=== PATIENT | female | born 1935 | race Caucasian/White ===

== ENCOUNTER 2017-01-26 15:19 | Inpatient (IN) | payer OTHER ==
[2017-01-26 16:15] VITALS: BMI 27.4
--- NOTE | 2017-01-26 17:04 | PDOC ---
History of Present Illness - General Chief Complaint: Injury Stated Complaint: FALL Time Seen by Provider: 01/26/17 16:11 - History of Present Illness Initial Comments: 01/26/17 16:54 Patient is a 81 year old female who presents with headache and facial bruising following a fall. The patient is accompanied by her daughter who assists in providing the history. They report that the patient has had 3 falls within the last 24 hours. The patient fell twice yesterday both reportedly mechanical in nature. They report that today the patient was getting up from a chair when it fell out behind her and she fell forward onto her face while wearing her glasses. They report swelling and bruising around the patient's left eye prompting their visit to the ED. The daughter states that the patient is normally very ambulatory without many falls in the past and is concerned about her recent frequent falls in the last 24 hours. The patient denies fevers, chills, chest pain or palpitations, abdominal pain, or other injuries. Past History - Past Medical History Allergies/Adverse Reactions: Allergies Allergy/AdvReac Type Severity Reaction Status Date / Time No Known Allergies Allergy Verified 05/27/15 11:23 Home Medications: Ambulatory Orders Acetaminophen [Tylenol .Regular Strength -] 650 mg PO Q4H PRN #60 tablet Albuterol 0.083% Nebulizer [place] [Ventolin 0.083% Nebulizer Soln -] 1 neb NEB QIDR #100 vial 05/07/14 Pantoprazole Sodium [Protonix -] 20 mg PO DAILY #30 tablet.ec 05/07/14 Sertraline HCl [Zoloft -] 50 mg PO DAILY #30 tablet 05/07/14 Spironolactone [Aldactone -] 25 mg PO DAILY #30 tablet 05/07/14 Tiotropium [place] [Spiriva] 1 inh PO DAILY #1 inhaler 05/07/14 Ipratropium 0.02% Nebulizer [Atrovent] 1 neb [place] TID #30 vial 05/27/15 Prednisone [Deltasone -] 5 mg PO DAILY 05/27/15 Prednisone [Deltasone -] 40 mg PO DAILY #14 tablet 05/27/15 Valsartan 40 mg PO DAILY 05/27/15 COPD: Yes HTN: Yes Psychiatric Problems: Yes (depression.) - Surgical History Appendectomy: Yes Cholecystectomy: Yes - Psycho/Social/Smoking Cessation Hx Anxiety: No Suicidal Ideation: No Smoking History: Former smoker Have you smoked in the past 12 months: No Number of Cigarettes Smoked Daily: 20 If you are a former smoker, when did you quit?: 3 years ago Information on smoking cessation initiated: No 'Breaking Loose' booklet given: 04/24/14 Hx Alcohol Use: No Drug/Substance Use Hx: No Substance Use Type: None Hx Substance Use Treatment: No Review of Systems - Review of Systems Constitutional: No: Chills, Fever HEENTM: Yes: Eye Pain Respiratory: No: Cough, Shortness of Breath Cardiac (ROS): No: Chest Pain, Lightheadedness, Palpitations, Chest Tightness ABD/GI: No: Constipated, Diarrhea, Nausea, Vomiting : No: Dysuria Integumentary: Yes: Bruising. No: Rash Neurological: Yes: Headache. No: Numbness, Tingling, Weakness *Physical Exam - Vital Signs Last Vital Signs Temp Pulse Resp BP Pulse Ox 98.2 F 85 20 151/72 86 L 01/26/17 16:00 01/26/17 16:00 01/26/17 16:00 01/26/17 16:00 01/26/17 16:00 - Physical Exam Comments: 01/26/17 17:13 General Appearance: Nourished. No Apparent Distress HEENT: EOMI, Edema and bruising around the left eye with palpable hematoma above and below the eye and on the superior eyelid. Limited eye opening due to edema. No Pharyngeal Erythema, Tonsillar Exudate, Tonsillar Erythema Respiratory/Chest: Lungs Clear, Normal Breath Sounds. No Crackles, Rales, Rhonchi, Wheezing Cardiovascular: Regular Rhythm, Regular Rate, 3/6 Systolic ejection murmur auscultated on exam No Gallop/S3, Gallop/S4 Gastrointestinal/Abdominal: Normal Bowel Sounds, Soft. negative: Guarding, Rebound, Tenderness Extremity: Normal Capillary Refill Integumentary: Normal Color, Dry, Warm Neurologic: safety person II-XII NML intact, Fully Oriented, Alert, Normal Mood/Affect, Normal Response, Motor Strength 5/5, Normal Finger to Nose Medical Decision Making - Medical Decision Making 01/26/17 17:15 Patient is a 81 year old female who presents with headache, eye pain and edema following a fall. Differential includes but is not limited to: Subdural hematoma, Epidural hematoma, fracture, syncope, arrythmia. Given the patient's mechanism of fall and physical exam, we will obtain a CT head and CT facial to evaluate for bleeds and fractures. Given that the patient has had multiple falls within the last 24 hours, it is reasonable to evaluate for other etiology that could be contributing to her falls other than simply mechanical. We will send a cbc, cmp, troponin and obtain a EKG to evaluate. 01/26/17 19:20 Patient's head and facial CT were read as no acute fractures with no intracranial process or bleed. Given the patient's multiple falls in the last 24 hours despite having recently gotten out of rehab and given that the patient' s granddaughter is not entirely comfortable with caring for the patient, we believe that the patient requires admission for observation to be evaluated for PT and social work evaluation. 01/26/17 19:24 We discussed the case with Dr. Jefferson who agreed to accept the patient. *DC/Admit/Observation/Transfer Diagnosis at time of Disposition: Fall Qualifiers: Encounter type: initial encounter Qualified Code(s): W19.XXXA - Unspecified fall, initial encounter - Discharge Dispostion Condition at time of disposition: Guarded Admit: Yes - Attestations Physician Attestion: 01/26/17 19:18 I, Dr. Jose Xiong, attest that this document has been prepared under my direction and personally reviewed by me in its entirety. I further attest, that it accurately reflects all work, treatment, procedures and medical decision -making performed by me.
[2017-01-26] MEDS ORDERED: ACETAMINOPHEN 325 MG TABLET (FP) PO ONE (18:47)
[2017-01-26] MEDS ORDERED: ACETAMINOPHEN 325 MG TABLET (FP) ONE ×2 (19:14→23:04)
--- NOTE | 2017-01-26 19:30 | PDOC ---
Attending Attestation - Resident Resident Name: Jose Xiong - ED Attending Attestation I have performed the following: I have examined & evaluated the patient, The case was reviewed & discussed with the resident, I agree w/resident's findings & plan, Exceptions are as noted - HPI HPI: 01/26/17 19:27 81 yo F s/p trip and fall. pt has had multiple falls in last week, just out of rehab. . believes no loc but all unwitness. fell out of bed last pm landed forward on face, then today fell out of a chair. denies feeling unbalanced. no n /v c/o headache. since fall. no change to vision. no focal weakness. no change to speech. no f/c - Physicial Exam PE: 01/26/17 19:28 on exam awake alert left face eccymosis, forehead, periorbital, and cheek. no septal hematoma. EOMI, left eye with subjconj hemoatoma. perrl. no cervical spine tenderness. lungs clear . heart rrr. abd soft NT ext wwp. right upper arm wtih eccymosis from. 5/5 all four ext. - Medical Decision Making 01/26/17 19:29 81 yo F with mutliple falls, facial and head trauma. abbott ro syncope dysrhtymia, mi infection such as uti or pneumonia, ct head max facial. gideon consider admission due to frequency of falls, unsafe discharge.
[2017-01-26 20:04] LABS: BASOPHIL 1.2 % (0-2.0); EOSINOPHIL 1.1 % (0-4.5); MCH 25.3 pg (25.7-33.7); MCHC 31.7 g/dl (32.0-36.0); MEAN CELL VOLUME 79.8 fl (80-96); MEAN PLT VOLUME 8.2 fl (7.5-11.1); NEUTROPHILS 80.2 % (42.8-82.8); PLATELET COUNT 230 K/MM3 (134-434); RDW 15.4 % (11.6-15.6); WHITE BLOOD COUNT 8.3 K/mm3 (4.0-10.0)
[2017-01-26 20:07] LABS: ALBUMIN 3.4 g/dl (3.4-5.0); ALK PHOS 86 U/L (45-117); ANION GAP 7 (8-16); BILIRUBIN,TOTAL 0.5 mg/dL (0.2-1.0); CALCIUM 8.6 mg/dL (8.5-10.1); CO2 28 mmol/L (21-32); GLUCOSE,RANDOM 92 mg/dL (74-106); SGOT/AST 16 U/L (15-37); SGPT/ALT 19 U/L (12-78); TOT PROT 6.6 g/dl (6.4-8.2)
[2017-01-26 20:09] LABS: TROPONIN I 0.02 ng/ml (0.00-0.05)
[2017-01-26 20:12] LABS: URINE APPEARANCE CLEAR; URINE BILIRUBIN NEGATIVE (NEGATIVE); URINE BLOOD NEGATIVE (NEGATIVE); URINE COLOR YELLOW; URINE GLUCOSE (UA) NEGATIVE (NEGATIVE); URINE KETONE NEGATIVE (NEGATIVE); URINE LEUK ESTERASE NEGATIVE (NEGATIVE); URINE NITRITE NEGATIVE (NEGATIVE); URINE UROBILINOGEN NEGATIVE mg/dL (0.2-1.0)
[2017-01-26 20:15] LABS: URINE PROTEIN 1+ (NEGATIVE)
[2017-01-26 20:16] LABS: URINE RBC 5 /hpf (0-3); URINE WBC 1 /hpf (3-5)
[2017-01-26] MEDS ORDERED: ALBUTEROL SO4 2.5/IPRATROPIUM 0.5 INH SOL 3 ML VIAL.NEB. NEB PRN (21:28)
[2017-01-26] MEDS: HEPARIN NA (PORCINE) 5,000 UNITS/ML 1ML VIAL SQ SCH (22:52)
[2017-01-27 08:31] LABS: BASOPHIL 1.8 % (0-2.0); EOSINOPHIL 3.5 % (0-4.5); MCH 25.4 pg (25.7-33.7); MCHC 31.8 g/dl (32.0-36.0); MEAN CELL VOLUME 79.9 fl (80-96); MEAN PLT VOLUME 8.4 fl (7.5-11.1); NEUTROPHILS 72.2 % (42.8-82.8); PLATELET COUNT 216 K/MM3 (134-434); RDW 15.5 % (11.6-15.6); WHITE BLOOD COUNT 5.9 K/mm3 (4.0-10.0)
[2017-01-27 08:59] LABS: ALBUMIN 3.1 g/dl (3.4-5.0); ANION GAP 6 (8-16); CALCIUM 8.5 mg/dL (8.5-10.1); CO2 28 mmol/L (21-32); GLUCOSE,RANDOM 96 mg/dL (74-106)
[2017-01-27 09:01] LABS: TROPONIN I 0.03 ng/ml (0.00-0.05)
[2017-01-27 09:11] LABS: ALK PHOS 80 U/L (45-117); BILIRUBIN,TOTAL 0.6 mg/dL (0.2-1.0); CREATININE 1.1 mg/dL (0.55-1.02); SGOT/AST 16 U/L (15-37); SGPT/ALT 18 U/L (12-78); THYROID STIMULATING HORMONE 0.95 uIU/ml (0.358-3.74); TOT PROT 6.1 g/dl (6.4-8.2)
[2017-01-27] MEDS ORDERED: FUROSEMIDE 20 MG TABLET (FP) PO SCH (10:00)
--- NOTE | 2017-01-27 10:27 | EKG ---
Test Reason : Blood Pressure : / mmHG Vent. Rate : 082 BPM Atrial Rate : 082 BPM P-R Int : 146 ms QRS Dur : 084 ms QT Int : 404 ms P-R-T Axes : 047 -04 031 degrees QTc Int : 472 ms NORMAL SINUS RHYTHM POSSIBLE LEFT ATRIAL ENLARGEMENT CANNOT RULE OUT INFERIOR INFARCT , AGE UNDETERMINED POOR R WAVE PROGRESSION ABNORMAL ECG Confirmed by KENTON GAN MD ([id number]) on 01/27/2017 10:27:00 AM Referred By: Confirmed By:KENTON GAN MD
--- NOTE | 2017-01-27 10:36 | CON.CARD ---
Cardiology Consult (text) - Consultation Consultation Note: cc: s/p fall hpi: 81 f hx copd, , htn, hld, dchf, pvd, AAA here s/p fall. Recently discharged from rehab and at home has had several mechanical falls so brought to ER. No prodrome sxs. No cp, sob, palps, dizzy, loc, pnd, orthopnea. Each episode was due to a mechanical slip/fall per pt. Sees me for cardio. pmh: per hpi psh: appendectomy, cholecystectomy social: +cig hx fam: non contrib ros: per hpi; no fever, nvd, cough, moore, vision changes, gib, hematuria, dysuria meds: Home Medications Medication Instructions Recorded Pantoprazole Sodium [Protonix -] 20 mg PO DAILY #30 tablet.ec 05/07/14 Furosemide 20 mg PO DAILY 01/26/17 Aspirin [ASA -] 81 mg PO DAILY 01/27/17 Atorvastatin Calcium 10 mg PO HS 01/27/17 Fluticasone/Vilanterol [Breo 200 mcg NEB DAILY 01/27/17 Ellipta 200-25 Mcg INH] Levalbuterol HCl [Xopenex] 0.63 mg IH TID 01/27/17 Sertraline HCl [Zoloft] 100 mg PO DAILY 01/27/17 Spironolactone [Aldactone] 25 mg PO DAILY 01/27/17 Umeclidinium [place] [Incruse 62.5 mcg IH DAILY 01/27/17 Ellipta] pe: Vital Signs Period Temp Pulse Resp BP Sys/Le Pulse Ox Last 24 Hr 97.7 F-98.4 F 78-85 18-20 129-151/72-72 85-95 nad no jvd rrr s1 s2 no r/g, +as murmur cta bl, nl eff aaox3 no le e/c/c abd nt nd pos bs pos dp/pt no jaundice/diaphoresis no carotid bruits Laboratory Last Values WBC 5.9 K/mm3 (4.0-10.0) 01/27/17 06:00 RBC 3.03 M/mm3 (3.60-5.2) L 01/27/17 06:00 Hgb 7.7 GM/dL (10.7-15.3) L 01/27/17 06:00 Hct 24.2 % (32.4-45.2) L 01/27/17 06:00 MCV 79.9 fl (80-96) L 01/27/17 06:00 MCH 25.4 pg (25.7-33.7) L 01/27/17 06:00 MCHC 31.8 g/dl (32.0-36.0) L 01/27/17 06:00 RDW 15.5 % (11.6-15.6) 01/27/17 06:00 Plt Count 216 K/MM3 (134-434) 01/27/17 06:00 MPV 8.4 fl (7.5-11.1) 01/27/17 06:00 Neutrophils % 72.2 % (42.8-82.8) 01/27/17 06:00 Lymphocytes % 16.5 % (8-40) D 01/27/17 06:00 Monocytes % 6.0 % (3.8-10.2) 01/27/17 06:00 Eosinophils % 3.5 % (0-4.5) D 01/27/17 06:00 Basophils % 1.8 % (0-2.0) 01/27/17 06:00 Sodium 142 mmol/L (136-145) 01/27/17 06:00 Potassium 3.9 mmol/L (3.5-5.1) 01/27/17 06:00 Chloride 108 mmol/L (98-107) H 01/27/17 06:00 Carbon Dioxide 28 mmol/L (21-32) 01/27/17 06:00 Anion Gap 6 (8-16) L 01/27/17 06:00 BUN 20 mg/dL (7-18) H 01/27/17 06:00 Creatinine 1.1 mg/dL (0.55-1.02) H 01/27/17 06:00 Creat Clearance w eGFR 47.55 (>60) 01/27/17 06:00 Random Glucose 96 mg/dL (74-106) 01/27/17 06:00 Calcium 8.5 mg/dL (8.5-10.1) 01/27/17 06:00 Total Bilirubin 0.6 mg/dL (0.2-1.0) 01/27/17 06:00 AST 16 U/L (15-37) 01/27/17 06:00 ALT 18 U/L (12-78) 01/27/17 06:00 Alkaline Phosphatase 80 U/L (45-117) 01/27/17 06:00 Creatine Kinase 128 IU/L (26-192) 01/27/17 06:00 Troponin I 0.03 ng/ml (0.00-0.05) 01/27/17 06:00 Total Protein 6.1 g/dl (6.4-8.2) L 01/27/17 06:00 Albumin 3.1 g/dl (3.4-5.0) L 01/27/17 06:00 TSH 0.95 uIU/ml (0.358-3.74) 01/27/17 06:00 Urine Color Yellow 01/26/17 19:30 Urine Appearance Clear 01/26/17 19:30 Urine pH 7.0 (5.0-8.0) D 01/26/17 19:30 Ur Specific [place] 1.015 (1.005-1.025) 01/26/17 19:30 Urine Protein 1+ (NEGATIVE) H 01/26/17 19:30 Urine Glucose (UA) Negative (NEGATIVE) 01/26/17 19:30 Urine Ketones Negative (NEGATIVE) 01/26/17 19:30 Urine Blood Negative (NEGATIVE) 01/26/17 19:30 Urine Nitrite Negative (NEGATIVE) 01/26/17 19:30 Urine Bilirubin Negative (NEGATIVE) 01/26/17 19:30 Urine Urobilinogen Negative mg/dL (0.2-1.0) 01/26/17 19:30 Ur Leukocyte Esterase Negative (NEGATIVE) 01/26/17 19:30 Urine RBC 5 /hpf (0-3) 01/26/17 19:30 Urine WBC 1 /hpf (3-5) 01/26/17 19:30 Ur Epithelial Cells Rare /hpf (FEW) 01/26/17 19:30 echo 03/2014: nl lvef, mod conc lvh, nl rv s/f, mild tr, rvsp>60 echo 03/2016: nl lv/rv, mod conc lvh, mod , mild mac, insuff tr for rvsp mibi 03/2016: nl mpi, nl lvef ecg 01/26/17: sr, nl intervals, no ischemic changes cxr: small bl effs a/p: hpi: 81 f hx copd, , htn, hld, dchf, pvd, AAA here s/p fall falls: -no indication of cardiac etiology, description seems mechanical in nature -check orthostatic vitals -PT eval chronic diastolic chf: -stable, cont home aldactone/lasix htn: -stable, cont aldactone/lasix hld: -cont statin : -moderate on 03/2016 echo, repeat echo pending here AAA: -pt was supposed to have endorepair at [facility], [place] but she reports that procedure was unsuccessful -cont current cardiac meds, outpt vascular f/u copd, severe pulm htn: -suspect phtn sec to severe lung dz/copd -normal RV size/fcn -copd tx per pulm -repeat echo pending here
[2017-01-27] MEDS: PANTOPRAZOLE 20 MG TABLET (FP) PO SCH (11:01)
[2017-01-27] MEDS: HEPARIN NA (PORCINE) 5,000 UNITS/ML 1ML VIAL SQ SCH ×2 (11:01→21:59)
--- NOTE | 2017-01-27 11:25 | HP ---
Admitting History and Physical - Primary Care Physician PCP: Dion Sheehan - Admission Chief Complaint: I fell History of Present Illness: Ms Ordoñez is a very pleasant 81 year old female who comes in with 2 mechanical falls. She says the first fall she had was in bed. She says the sheets were too slippery and when she was getting up out of bed she slipped and fell. She did not have serious trauma secondary to this. However she was sitting in the chair with a pad underneath. She felt herself slipping down and went to get up. Instead of standing the chair tipped forward and she was unable to break her fall with her hands and she hit her face. She denies lightheadedness or dizziness associated with this. She denies passing out or loss of consciousness as well. She says the falls were mechanical and not related to presyncope or syncope. She has facial pain and bruising. She says she feels short of breath. She denies fevers, chills, chest pain, coughing, nausea, vomiting, abdominal pain, diarrhea, constipation, difficulty or pain on urination, or swelling. History Source: Patient Limitations to Obtaining History: No Limitations - Past Medical History Cardiovascular: Yes: HTN, Murmur Pulmonary: Yes: Bronchitis, COPD Gastrointestinal: Yes: Other (had colonoscopy ? 5 yrs ago). 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 [employer] History of Recent Travel: No Home Medications - Allergies Allergies/Adverse Reactions: Allergies Allergy/AdvReac Type Severity Reaction Status Date / Time No Known Allergies Allergy Verified 05/27/15 11:23 - Home Medications Home Medications: Ambulatory Orders Pantoprazole Sodium [Protonix -] 20 mg PO DAILY #30 tablet.ec 05/07/14 Furosemide 20 mg PO DAILY 01/26/17 Aspirin [ASA -] 81 mg PO DAILY 01/27/17 Atorvastatin Calcium 10 mg PO HS 01/27/17 Fluticasone/Vilanterol [Breo Ellipta 200-25 Mcg INH] 200 mcg NEB DAILY 01/27/17 Levalbuterol HCl [Xopenex] 0.63 mg IH TID 01/27/17 Sertraline HCl [Zoloft] 100 mg PO DAILY 01/27/17 Spironolactone [Aldactone] 25 mg PO DAILY 01/27/17 Umeclidinium [place] [Incruse Ellipta] 62.5 mcg IH DAILY 01/27/17 Family Disease History - Family Disease History Family Disease History: Other: Father (cirrhosis), Mother (96 old age) Review of Systems Findings/Remarks: full review of systems obtained, as per HPI and otherwise negative Physical Examination Vital Signs: Vital Signs Temperature 98.4 F 01/27/17 06:34 Pulse Rate 78 01/27/17 09:21 Respiratory Rate 18 01/27/17 06:34 Blood Pressure 135/72 01/27/17 06:34 O2 Sat by Pulse Oximetry (%) 85 L 01/27/17 09:21 Constitutional: Yes: Well Nourished, No Distress, Calm Eyes: Yes: Other (bruising around L eye) HENT: Yes: Other (bruising of face) Cardiovascular: Yes: Regular Rate and Rhythm, Murmur. No: Gallop, Rub Respiratory: Yes: Regular, CTA Bilaterally, On Nasal O2. No: Rales, Rhonchi, Wheezes Gastrointestinal: Yes: Normal Bowel Sounds, Soft. No: Distention, Tenderness Extremities: Yes: WNL Edema: No Labs: CBC, BMP 01/27/17 06:00 01/27/17 06:00 Imaging - Results Chest X-ray: Report Reviewed, Image Reviewed Ultrasound: Report Reviewed Problem List - Problems (1) COPD exacerbation Assessment/Plan: -patient presents with fall but is short of breath and requiring more oxygen -admit to hospital -consult pulmonary -continue home regimen, has not received medication this am but will be profiled and given -will hold on steroids until evaluated by pulmonary Code(s): J44.1 - CHRONIC OBSTRUCTIVE PULMONARY DISEASE W (ACUTE) EXACERBATION (2) Acute and chronic respiratory failure Assessment/Plan: -secondary to copd exacerbation -requiring increase in oxygen -as above Code(s): J96.20 - ACUTE AND CHR RESP FAILURE, UNSP W HYPOXIA OR HYPERCAPNIA (3) Fall Assessment/Plan: -sounds mechanical in nature -ECHO read reviewed -carotid ultrasound reviewed -cardiology and neurology consulted for possible syncopal aspect -check orthostatic vital signs -PT consult Code(s): W19.XXXA - UNSPECIFIED FALL, INITIAL ENCOUNTER Qualifiers: Encounter type: initial encounter Qualified Code(s): W19.XXXA - Unspecified fall, initial encounter (4) Carotid artery stenosis Assessment/Plan: -s/p carotid ultrasound showing FAM -consult vascular surgery for evaluation -check lipid panel to evaluate cholesterol level -continue statin currently, may need increase Code(s): I65.29 - OCCLUSION AND STENOSIS OF UNSPECIFIED CAROTID ARTERY Qualifiers: Laterality: bilateral Qualified Code(s): I65.23 - Occlusion and stenosis of bilateral carotid arteries (5) CHF (congestive heart failure) Assessment/Plan: -does not appear in exacerbation -continue lasix -cardiology consulted Code(s): I50.9 - HEART FAILURE, UNSPECIFIED (6) Aortic stenosis Assessment/Plan: -cause of murmur -seen on ECHO -cardiology to evaluate, if falls appear to be syncopal in nature ? possible TAVR Code(s): I35.0 - NONRHEUMATIC AORTIC (VALVE) STENOSIS (7) AAA (abdominal aortic aneurysm) without rupture Assessment/Plan: -s/p recent attempted repair Code(s): I71.4 - ABDOMINAL AORTIC ANEURYSM, WITHOUT RUPTURE (8) Anemia Assessment/Plan: -patient says she required transfusion with attempt to fix AAA recently -suspect acute blood loss -continue to monitor, may need transfusion Code(s): D64.9 - ANEMIA, UNSPECIFIED
[2017-01-27] MEDS ORDERED: PATIENT'S OWN MEDICATION (NON-FORMULARY) (Fluticasone/Vilanterol [Breo Ellipta 200-25 Mcg NEB SCH (11:30)
[2017-01-27] MEDS ORDERED: PATIENT'S OWN MEDICATION (NON-FORMULARY) (Umeclidinium Bromide [Incruse Ellipta] 62.5 MCG) IH SCH (11:30)
[2017-01-27] MEDS: SPIRONOLACTONE 25 MG TABLET (FP) PO SCH (12:14)
[2017-01-27] MEDS: ASPIRIN 81 MG CHEWABLE TABLETS PO SCH (12:14)
[2017-01-27] MEDS: FUROSEMIDE 20 MG TABLET (FP) PO SCH (14:43)
[2017-01-27] MEDS: PATIENT'S OWN MEDICATION (NON-FORMULARY) (Fluticasone/Vilanterol [Breo Ellipta 200-25 Mcg IH SCH ×2 (14:43→14:44)
[2017-01-27 15:07] LABS: TROPONIN I 0.02 ng/ml (0.00-0.05)
--- NOTE | 2017-01-27 17:26 | PN ---
Progress Note (short form) - Note Progress Note: PULMONARY CONSULTATION DICTATED 01/27/17 IMP ACUTE ON CHRONIC HYPOXEMIC FAILURE COPD SEVERE PULMONARY HTN SEVERE AORTIC STENOSIS SEVERE OSAS CAROTID STENOSIS CHF S/P MECHANICAL FALL AAA S/P ATTEMPTED REPAIR ANEMIA PLAN O2 INHALED BRONCHODILATORS MONITOR H+H TRANSFUSE PRN DR KLINE Problem List - Problems (1) AAA (abdominal aortic aneurysm) without rupture Code(s): I71.4 - ABDOMINAL AORTIC ANEURYSM, WITHOUT RUPTURE (2) Acute and chronic respiratory failure Code(s): J96.20 - ACUTE AND CHR RESP FAILURE, UNSP W HYPOXIA OR HYPERCAPNIA (3) Anemia Code(s): D64.9 - ANEMIA, UNSPECIFIED (4) Carotid artery stenosis Code(s): I65.29 - OCCLUSION AND STENOSIS OF UNSPECIFIED CAROTID ARTERY Qualifiers: Laterality: bilateral Qualified Code(s): I65.23 - Occlusion and stenosis of bilateral carotid arteries (5) Fall Code(s): W19.XXXA - UNSPECIFIED FALL, INITIAL ENCOUNTER Qualifiers: Encounter type: initial encounter Qualified Code(s): W19.XXXA - Unspecified fall, initial encounter (6) Aortic stenosis Code(s): I35.0 - NONRHEUMATIC AORTIC (VALVE) STENOSIS (7) CHF (congestive heart failure) Code(s): I50.9 - HEART FAILURE, UNSPECIFIED (8) COPD exacerbation Code(s): J44.1 - CHRONIC OBSTRUCTIVE PULMONARY DISEASE W (ACUTE) EXACERBATION (9) Hypoxia Code(s): R09.02 - HYPOXEMIA (10) PVD (peripheral vascular disease) Code(s): I73.9 - PERIPHERAL VASCULAR DISEASE, UNSPECIFIED (11) Pulmonary hypertension Code(s): I27.2 - OTHER SECONDARY PULMONARY HYPERTENSION (12) Sleep apnea in adult Code(s): G47.30 - SLEEP APNEA, UNSPECIFIED
[2017-01-27] MEDS: ACETAMINOPHEN 325 MG TABLET (FP) PO PRN (18:32)
--- NOTE | 2017-01-27 19:16 | CONSULT ---
Consult - text type - Consultation Consultation Note: NEUROLOGY CONSULTATION is greatly appreciated: This 81 yo RH woman lives with her granddaughter and her family. PMH sig for HTN, COPD, GERD, Pulm HTN, and AAA. Quit smoking 3 yrs ago. O2 dependent at home. Maintained on valsartan, albuterol, pantoprazole, sertraline, spironolactone and prednisone. Hospitalized 2 years ago for edema. Was sent to the [facility] for reab and sent home with a walker at that time. Deteriorated over the last year describing herself as "long term." 2 falls in last few days. First she slid out of bed without consequence. However , yesterday she tried to get out of a reclining chair which demarcus up behind her propelling her to the ground with frontal facial trauma. CT of head (reviewed): Facial soft tissue swelling. Mild atrophy and microvascular changes. Carotid duplex: 60-79% R ICA stenosis. LOUIE: Left facial ecchymosis. Right carotid bruit. IV/ SOPHIA @ [facility] NEURO: MS/speech: Normal CN II-XII: normal without nystagmus Motor: No drift. Normal strength. Minimal cogwheeling on the R. Sl. reduced Monika. Absent AJ's. Toes downgoing. Coord: No FTN dystaxia Sensory: Minimally reduced vibration over feet. Romberg - Gait: Sl flexed. Sl shuffling. IMP: Mild B/L motor signs with mild-mod senile gait dysfunction. No sign of acute CVA or toxic-metabolic insult. Unfortunate accidental fall with facial trauma but no sequellae. SUGGEST: Home safety check. Shower chair. Toilet rails. Check B12, TSH. Follow and/or work-up anemia (H/H=02/17). PT for gait with walker. Neuro f/u as out patient. Thank you very much, Mark Sanchez MD
[2017-01-27] MEDS: ATORVASTATIN CA 10 MG TABLET (FP) PO SCH (21:59)
[2017-01-27 22:41] LABS: TROPONIN I 0.03 ng/ml (0.00-0.05)
--- NOTE | 2017-01-28 07:17 | CONS ---
DATE OF CONSULTATION: 01/27/2017 REFERRING PHYSICIAN: Kevin Mclaughlin MD HISTORY OF PRESENT ILLNESS: The patient is an 81-year-old white female with advanced COPD, on home O2, had aortic stenosis, hypertension, hyperlipidemia, AAA unable to be repaired, diastolic heart failure, hyperlipidemia, severe obstructive sleep apnea, admitted to [facility] secondary to a mechanical fall. Patient apparently was recently discharged from rehabilitation. At home, she had apparently several mechanical falls. Apparently, she fell on the night of admission on her face at which time she presented to the emergency room. She denied any loss of consciousness. Denied any chest pains or palpitations. She denied any fevers or chills. She was admitted with the above. The patient does have a history of COPD and apparently has been on supplemental O2 for the past couple of months. She has a history of tobacco use. There is no history of occupational exposure to chemical or fumes. Of note, she underwent an echocardiogram which revealed severe pulmonary hypertension with a right ventricular systolic pressure greater than 60. She was also noted to have severe aortic valve thickening, severe valvular aortic stenosis. Patient denied any syncope. PAST MEDICAL HISTORY: Again includes COPD, aortic stenosis, severe pulmonary hypertension, obstructive sleep apnea, hyperlipidemia, diastolic heart failure. REVIEW OF SYSTEMS: No chest pain, no palpitations. Positive dyspnea on exertion. No headaches, no visual disturbances. CURRENT MEDICATIONS: Include: 1. Breo Ellipta, increased Ellipta. 2. Tylenol. 3. Heparin b.i.d. 4. Zoloft. 5. Duo-Neb. 6. Lipitor. 7. Lasix. 8. Aldactone. 9. Aspirin. 10. Protonix. PHYSICAL EXAMINATION: General: The patient is an elderly white female, well developed, awake, alert, in no acute distress. Vital Signs: She is afebrile. Blood pressure is 120/86. Respiratory rate is 18. O2 saturation 92% on 2 L. HEENT: Normocephalic. There are ecchymotic areas. Marked ecchymosis around the left eye and face, more prominent on the left side. Neck: Supple, without adenopathy. Heart: Regular, with S1, S2. Chest: Clear. Abdomen: Soft. Bowel sounds positive. Extremities: No cyanosis or edema. LABORATORIES: WBC is 5.9, hemoglobin 7.7, hematocrit 24.2, and a platelet count of 216,000. INR is 0.94. BUN 20, creatinine 1.1. Chest x-ray: No infiltrates, no effusions, small bilateral effusions, mild bibasilar atelectatic changes. IMPRESSION: 1. Status post mechanical fall with facial trauma. 2. Severe pulmonary hypertension. 3. Chronic obstructive pulmonary disease. 4. Severe obstructive sleep apnea. Patient responded well on continuous positive airway pressure of 6 cm. 5. Diastolic heart failure. 6. Severe aortic stenosis. 7. Anemia. PLAN: Inhaled bronchodilator. Supplemental O2. CPAP at 6 cm of pressure when patient's facial trauma heals. Monitor hemoglobin and hematocrit. Consider transfusion. Obtain followup chest x-rays. Incentive spirometer. ZARI KLINE M.D. [id number]
[2017-01-28 08:03] LABS: BASOPHIL 2.2 % (0-2.0); EOSINOPHIL 4.2 % (0-4.5); MCH 25.4 pg (25.7-33.7); MCHC 31.7 g/dl (32.0-36.0); MEAN PLT VOLUME 8.2 fl (7.5-11.1); NEUTROPHILS 71.3 % (42.8-82.8); PLATELET COUNT 212 K/MM3 (134-434); RDW 15.4 % (11.6-15.6); WHITE BLOOD COUNT 6.9 K/mm3 (4.0-10.0)
[2017-01-28 08:20] LABS: CHOLESTEROL 114 mg/dL (50-200); LDL CHOLESTEROL (ONLY SJRH) 38 mg/dL (5-100)
[2017-01-28 08:21] LABS: ANION GAP 9 (8-16); CALCIUM 8.6 mg/dL (8.5-10.1); CO2 28 mmol/L (21-32); GLUCOSE,RANDOM 102 mg/dL (74-106); MAGNESIUM 2.2 mg/dL (1.8-2.4); PHOSPHOROUS 3.3 mg/dL (2.5-4.9)
[2017-01-28] MEDS: PATIENT'S OWN MEDICATION (NON-FORMULARY) (Fluticasone/Vilanterol [Breo Ellipta 200-25 Mcg IH SCH (09:53)
[2017-01-28] MEDS: PATIENT'S OWN MEDICATION (NON-FORMULARY) (Umeclidinium Bromide [Incruse Ellipta] 1 PUFF) IH SCH (09:53)
[2017-01-28] MEDS: SPIRONOLACTONE 25 MG TABLET (FP) PO SCH (09:59)
[2017-01-28] MEDS: PANTOPRAZOLE 20 MG TABLET (FP) PO SCH (09:59)
[2017-01-28] MEDS: SERTRALINE HCL 50 MG TABLET (FP) PO SCH (09:59)
[2017-01-28] MEDS: ACETAMINOPHEN 325 MG TABLET (FP) PO PRN ×2 (09:59→17:54)
[2017-01-28] MEDS: ASPIRIN 81 MG CHEWABLE TABLETS PO SCH (09:59)
[2017-01-28] MEDS: HEPARIN NA (PORCINE) 5,000 UNITS/ML 1ML VIAL SQ SCH ×2 (10:00→21:07)
--- NOTE | 2017-01-28 10:48 | PN ---
Progress Note, Physician History of Present Illness: Still feeling weak, short of breath (could not tolerate Duoneb due to tachycardia). Notes that the aenmia seem sot be a new finding, although having received blood transfusion after her acute - Current Medication List Current Medications: Active Medications Acetaminophen (Tylenol -) 650 mg PO Q6H PRN PRN Reason: FEVER OR PAIN Last Admin: 01/28/17 09:59 Dose: 650 mg Aspirin (Asa -) 81 mg PO DAILY [facility] Last Admin: 01/28/17 09:59 Dose: 81 mg Atorvastatin Calcium (Lipitor -) 10 mg PO HS [facility] Last Admin: 01/27/17 21:59 Dose: 10 mg Furosemide (Lasix -) 20 mg PO DAILY@1400 [facility] Last Admin: 01/27/17 14:43 Dose: 20 mg Furosemide (Lasix Injection -) 20 mg IVPUSH ONCE ONE Stop: 01/28/17 11:01 Heparin Sodium (Porcine) (Heparin -) 5,000 unit SQ BID [facility] Last Admin: 01/28/17 10:00 Dose: 5,000 unit Non-Formulary Medication (Fluticasone/Vilanterol [Breo Ellipta 200-25 Mcg Inh]) 1 puff IH DAILY [facility] Last Admin: 01/28/17 09:53 Dose: 1 puff Non-Formulary Medication (Umeclidinium [place] [Incruse Ellipta]) 1 puff IH DAILY [facility] Last Admin: 01/28/17 09:53 Dose: 1 puff Non-Formulary Medication (Xopenex) 1 dose NEB TID [facility] Pantoprazole Sodium (Protonix -) 20 mg PO DAILY [facility] Last Admin: 01/28/17 09:59 Dose: 20 mg Sertraline HCl (Zoloft -) 100 mg PO DAILY [facility] Last Admin: 01/28/17 09:59 Dose: 100 mg Spironolactone (Aldactone -) 25 mg PO DAILY [facility] Last Admin: 01/28/17 09:59 Dose: 25 mg - Objective Vital Signs: Vital Signs Temperature 98.6 F 01/28/17 06:00 Pulse Rate 94 H 01/28/17 06:00 Respiratory Rate 20 01/28/17 06:00 Blood Pressure 151/94 01/28/17 06:00 O2 Sat by Pulse Oximetry (%) 90 L 01/27/17 21:00 Constitutional: Yes: No Distress, Calm HENT: Yes: Other (left facial ecchymosis, left orbital swelling) Neck: Yes: Supple Cardiovascular: Yes: Regular Rate and Rhythm, S1, S2. No: Murmur Respiratory: Yes: Regular, Diminished (slightly bilaterally). No: Rales, Rhonchi, Wheezes Gastrointestinal: Yes: Normal Bowel Sounds, Soft, Distention, Tenderness Edema: No Neurological: Yes: Alert, Oriented Labs: CBC, BMP 01/28/17 07:40 01/28/17 07:40 Assessment/Plan Current Active Problems AAA (abdominal aortic aneurysm) without rupture (Acute) Acute and chronic respiratory failure (Acute) Anemia (Acute) Carotid artery stenosis (Acute) Fall (Acute) Pulmonary hypertension (Acute) Sleep apnea in adult (Acute) -given anemia is relatively new (likely subacute, but last CBC was from 1-2 years ago here, with hgb 11-12) will treat for symptomatic anemia (falls , weakness, shortness of breath) with blood transfusion. No abd pain now, but will check CT abd to ensure no "leak" form the known aortic aneurysm she has -heme consult, check stool guaiac to see if GI needs to be consulted
[2017-01-28] MEDS ORDERED: FUROSEMIDE 40 MG/4 ML INJECTABLE VIAL IVPUSH ONE ×2 (11:00→16:00)
[2017-01-28 11:18] LABS: LDH 161 U/L (84-246)
--- NOTE | 2017-01-28 13:00 | CONSULT ---
Consult - text type - Consultation Consultation Note: Hematology consult note - Admission Chief Complaint: I fell Ms. freed comes in after an episode of fall and extensive bruises. She reports she has been gradually getting tired over the past few months. No h/o of blood loss anywhere. She eats reasonably well. No h/o of infections. No prior h/o of anemia in the past. - Past Medical History Cardiovascular: Yes: HTN, Murmur Pulmonary: Yes: Bronchitis, COPD Gastrointestinal: Yes: Other (had colonoscopy ? 5 yrs ago). 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 [employer] History of Recent Travel: No Home Medications - Allergies Allergies/Adverse Reactions: Allergies Allergy/AdvReac Type Severity Reaction Status Date / Time No Known Allergies Allergy Verified 05/27/15 11:23 - Home Medications Home Medications: Ambulatory Orders Pantoprazole Sodium [Protonix -] 20 mg PO DAILY #30 tablet.ec 05/07/14 Furosemide 20 mg PO DAILY 01/26/17 Aspirin [ASA -] 81 mg PO DAILY 01/27/17 Atorvastatin Calcium 10 mg PO HS 01/27/17 Fluticasone/Vilanterol [Breo Ellipta 200-25 Mcg INH] 200 mcg NEB DAILY 01/27/17 Levalbuterol HCl [Xopenex] 0.63 mg IH TID 01/27/17 Sertraline HCl [Zoloft] 100 mg PO DAILY 01/27/17 Spironolactone [Aldactone] 25 mg PO DAILY 01/27/17 Umeclidinium [place] [Incruse Ellipta] 62.5 mcg IH DAILY 01/27/17 Family Disease History - Family Disease History Family Disease History: Other: Father (cirrhosis), Mother (96 old age) Review of Systems Findings/Remarks: full review of systems obtained, as per HPI and otherwise negative Physical Examination Vital Signs: Vital Signs Period Temp Pulse Resp BP Sys/Le Pulse Ox Last 24 Hr 98.3 F-98.6 F 8- 18-22 111-151/52-94 90-90 Constitutional: Yes: Well Nourished, No Distress, Calm Eyes: Yes: HENT: Yes: extensive bruising of the L. side of the face Cardiovascular: Yes: Regular Rate and Rhythm, Murmur. No: Gallop, Rub Respiratory: Yes: Regular, CTA Bilaterally, On Nasal O2. No: Rales, Rhonchi, Wheezes Gastrointestinal: Yes: Normal Bowel Sounds, Soft. No: Distention, Tenderness Extremities: Yes: WNL Edema: No Labs: CBC, BMP 01/28/17 07:40 01/28/17 07:40 Active Medications Generic Name Dose Route Start Last Admin Trade Name Freq PRN Reason Stop Dose Admin Acetaminophen 650 mg 01/27/17 09:37 01/28/17 09:59 Tylenol - PO 650 mg Q6H PRN Administration FEVER OR PAIN Aspirin 81 mg 01/27/17 11:30 01/28/17 09:59 Asa - PO 81 mg DAILY [facility] Administration Atorvastatin Calcium 10 mg 01/27/17 22:00 01/27/17 21:59 Lipitor - PO 10 mg HS [facility] Administration Furosemide 20 mg 01/27/17 14:00 01/27/17 14:43 Lasix - PO 20 mg DAILY@1400 [facility] Administration Furosemide 20 mg 01/28/17 16:00 Lasix Injection - IVPUSH 01/28/17 16:01 ONCE ONE Heparin Sodium (Porcine) 5,000 unit 01/26/17 22:00 01/28/17 10:00 Heparin - SQ 5,000 unit BID [facility] Administration Non-Formulary Medication 1 puff 01/27/17 12:08 01/28/17 09:53 Fluticasone/Vilanterol [Breo Ellipta 200-25 Mcg Inh] IH 1 puff DAILY [facility] Administration Non-Formulary Medication 1 puff 01/27/17 12:08 01/28/17 09:53 Umeclidinium [place] [Incruse Ellipta] IH 1 puff DAILY [facility] Administration Non-Formulary Medication 1 dose 01/28/17 14:00 Xopenex NEB TID [facility] Pantoprazole Sodium 20 mg 01/27/17 10:00 01/28/17 09:59 Protonix - PO 20 mg DAILY [facility] Administration Sertraline HCl 100 mg 01/28/17 10:00 01/28/17 09:59 Zoloft - PO 100 mg DAILY [facility] Administration Spironolactone 25 mg 01/27/17 11:45 01/28/17 09:59 Aldactone - PO 25 mg DAILY [facility] Administration Imaging - Results Chest X-ray: Report Reviewed, Image Reviewed Ultrasound: Report Reviewed Problem List - Problems (1) COPD exacerbation Code(s): J44.1 - CHRONIC OBSTRUCTIVE PULMONARY DISEASE W (ACUTE) EXACERBATION (2) Acute and chronic respiratory failure Code(s): J96.20 - ACUTE AND CHR RESP FAILURE, UNSP W HYPOXIA OR HYPERCAPNIA (3) Fall Code(s): W19.XXXA - UNSPECIFIED FALL, INITIAL ENCOUNTER Qualifiers: Encounter type: initial encounter Qualified Code(s): W19.XXXA - Unspecified fall, initial encounter (4) Carotid artery stenosis Code(s): I65.29 - OCCLUSION AND STENOSIS OF UNSPECIFIED CAROTID ARTERY Qualifiers: Laterality: bilateral Qualified Code(s): I65.23 - Occlusion and stenosis of bilateral carotid arteries (5) CHF (congestive heart failure) Code(s): I50.9 - HEART FAILURE, UNSPECIFIED (6) Aortic stenosis Code(s): I35.0 - NONRHEUMATIC AORTIC (VALVE) STENOSIS (7) AAA (abdominal aortic aneurysm) without rupture Code(s): I71.4 - ABDOMINAL AORTIC ANEURYSM, WITHOUT RUPTURE (8) Anemia Assessment/Plan: -unclear cause of (near) normocytic, normochromic anemia -there is a reticulocytosis -other cell lines are not affected -Iron studies are pending -B12 and foalte are normal inc. LDH -All this currently points to an acute loss anemia vs iron deficiency and even if so mild Code(s): D64.9 - ANEMIA, UNSPECIFIED
--- NOTE | 2017-01-28 13:37 | PN ---
Progress Note, Physician History of Present Illness: pulmonary alert,feeling better,less dyspneic - Current Medication List Current Medications: Active Medications Acetaminophen (Tylenol -) 650 mg PO Q6H PRN PRN Reason: FEVER OR PAIN Last Admin: 01/28/17 09:59 Dose: 650 mg Aspirin (Asa -) 81 mg PO DAILY [facility] Last Admin: 01/28/17 09:59 Dose: 81 mg Atorvastatin Calcium (Lipitor -) 10 mg PO HS [facility] Last Admin: 01/27/17 21:59 Dose: 10 mg Furosemide (Lasix -) 20 mg PO DAILY@1400 [facility] Last Admin: 01/27/17 14:43 Dose: 20 mg Furosemide (Lasix Injection -) 20 mg IVPUSH ONCE ONE Stop: 01/28/17 16:01 Heparin Sodium (Porcine) (Heparin -) 5,000 unit SQ BID [facility] Last Admin: 01/28/17 10:00 Dose: 5,000 unit Non-Formulary Medication (Fluticasone/Vilanterol [Breo Ellipta 200-25 Mcg Inh]) 1 puff IH DAILY [facility] Last Admin: 01/28/17 09:53 Dose: 1 puff Non-Formulary Medication (Umeclidinium [place] [Incruse Ellipta]) 1 puff IH DAILY [facility] Last Admin: 01/28/17 09:53 Dose: 1 puff Non-Formulary Medication (Xopenex) 1 dose NEB TID [facility] Pantoprazole Sodium (Protonix -) 20 mg PO DAILY [facility] Last Admin: 01/28/17 09:59 Dose: 20 mg Sertraline HCl (Zoloft -) 100 mg PO DAILY [facility] Last Admin: 01/28/17 09:59 Dose: 100 mg Spironolactone (Aldactone -) 25 mg PO DAILY [facility] Last Admin: 01/28/17 09:59 Dose: 25 mg - Objective Vital Signs: Vital Signs Temperature 98.5 F 01/28/17 10:00 Pulse Rate 85 01/28/17 10:00 Respiratory Rate 22 01/28/17 10:00 Blood Pressure 111/52 01/28/17 10:00 O2 Sat by Pulse Oximetry (%) 90 L 01/28/17 09:00 Constitutional: Yes: Calm, Thin Eyes: Yes: WNL HENT: Yes: WNL Neck: Yes: WNL Cardiovascular: Yes: Regular Rate and Rhythm, S1, S2 Respiratory: Yes: CTA Bilaterally, Rales (b basilar rales) Gastrointestinal: Yes: Normal Bowel Sounds, Soft Extremities: Yes: WNL Edema: Yes Edema: LLE: Trace, RLE: Trace Labs: CBC, BMP 01/28/17 07:40 01/28/17 07:40 Problem List - Problems (1) AAA (abdominal aortic aneurysm) without rupture Code(s): I71.4 - ABDOMINAL AORTIC ANEURYSM, WITHOUT RUPTURE (2) Acute and chronic respiratory failure Code(s): J96.20 - ACUTE AND CHR RESP FAILURE, UNSP W HYPOXIA OR HYPERCAPNIA (3) Anemia Code(s): D64.9 - ANEMIA, UNSPECIFIED (4) Carotid artery stenosis Code(s): I65.29 - OCCLUSION AND STENOSIS OF UNSPECIFIED CAROTID ARTERY Qualifiers: Laterality: bilateral Qualified Code(s): I65.23 - Occlusion and stenosis of bilateral carotid arteries (5) Fall Code(s): W19.XXXA - UNSPECIFIED FALL, INITIAL ENCOUNTER Qualifiers: Encounter type: initial encounter Qualified Code(s): W19.XXXA - Unspecified fall, initial encounter (6) Aortic stenosis Code(s): I35.0 - NONRHEUMATIC AORTIC (VALVE) STENOSIS (7) CHF (congestive heart failure) Code(s): I50.9 - HEART FAILURE, UNSPECIFIED (8) COPD exacerbation Code(s): J44.1 - CHRONIC OBSTRUCTIVE PULMONARY DISEASE W (ACUTE) EXACERBATION (9) Hypoxia Code(s): R09.02 - HYPOXEMIA (10) PVD (peripheral vascular disease) Code(s): I73.9 - PERIPHERAL VASCULAR DISEASE, UNSPECIFIED (11) Pulmonary hypertension Code(s): I27.2 - OTHER SECONDARY PULMONARY HYPERTENSION (12) Sleep apnea in adult Code(s): G47.30 - SLEEP APNEA, UNSPECIFIED Assessment/Plan IMP ACUTE ON CHRONIC HYPOXEMIC FAILURE COPD SEVERE PULMONARY HTN SEVERE AORTIC STENOSIS SEVERE OSAS CAROTID STENOSIS CHF S/P MECHANICAL FALL AAA S/P ATTEMPTED REPAIR ANEMIA PLAN O2 INHALED BRONCHODILATORS MONITOR H+H TRANSFUSE DR KLINE Problem List - Problems (1) AAA (abdominal aortic aneurysm) without rupture Code(s): I71.4 - ABDOMINAL AORTIC ANEURYSM, WITHOUT RUPTURE (2) Acute and chronic respiratory failure Code(s): J96.20 - ACUTE AND CHR RESP FAILURE, UNSP W HYPOXIA OR HYPERCAPNIA (3) Anemia Code(s): D64.9 - ANEMIA, UNSPECIFIED (4) Carotid artery stenosis Code(s): I65.29 - OCCLUSION AND STENOSIS OF UNSPECIFIED CAROTID ARTERY Qualifiers: Laterality: bilateral Qualified Code(s): I65.23 - Occlusion and stenosis of bilateral carotid arteries (5) Fall Code(s): W19.XXXA - UNSPECIFIED FALL, INITIAL ENCOUNTER Qualifiers: Encounter type: initial encounter Qualified Code(s): W19.XXXA - Unspecified fall, initial encounter (6) Aortic stenosis Code(s): I35.0 - NONRHEUMATIC AORTIC (VALVE) STENOSIS (7) CHF (congestive heart failure) Code(s): I50.9 - HEART FAILURE, UNSPECIFIED (8) COPD exacerbation Code(s): J44.1 - CHRONIC OBSTRUCTIVE PULMONARY DISEASE W (ACUTE) EXACERBATION (9) Hypoxia Code(s): R09.02 - HYPOXEMIA (10) PVD (peripheral vascular disease) Code(s): I73.9 - PERIPHERAL VASCULAR DISEASE, UNSPECIFIED (11) Pulmonary hypertension Code(s): I27.2 - OTHER SECONDARY PULMONARY HYPERTENSION (12) Sleep apnea in adult Code(s): G47.30 - SLEEP APNEA, UNSPECIFIED
[2017-01-28] MEDS ORDERED: XOPENEX 0.63 MG/3 ML NEB SCH ×2 (14:00→22:00)
[2017-01-28] MEDS: XOPENEX 0.63 MG/3 ML NEB SCH ×2 (16:00→21:11)
[2017-01-28] MEDS ORDERED: XOPENEX 0.63 MG/3 ML NR SCH (16:15)
[2017-01-28] MEDS ORDERED: FUROSEMIDE 40 MG/4 ML INJECTABLE VIAL ONE (18:18)
[2017-01-28] MEDS: ATORVASTATIN CA 10 MG TABLET (FP) PO SCH (21:07)
[2017-01-29] MEDS: XOPENEX 0.63 MG/3 ML NEB SCH ×3 (05:59→22:06)
[2017-01-29 06:41] LABS: SERUM IRON 21 ug/dL (27-139); TOTAL IRON BINDING CAPACITY 323 ug/dL (250-450); UIBC 302 ug/dL (118-369)
[2017-01-29 07:29] LABS: EOSINOPHIL 3.6 % (0-4.5); MCHC 33.5 g/dl (32.0-36.0); MEAN CELL VOLUME 80.4 fl (80-96); MEAN PLT VOLUME 8.1 fl (7.5-11.1); NEUTROPHILS 72.7 % (42.8-82.8); PLATELET COUNT 253 K/MM3 (134-434); RDW 15.7 % (11.6-15.6); WHITE BLOOD COUNT 8.2 K/mm3 (4.0-10.0)
[2017-01-29 08:04] LABS: ALBUMIN 3.4 g/dl (3.4-5.0); ALK PHOS 85 U/L (45-117); ANION GAP 6 (8-16); BILIRUBIN,TOTAL 1.3 mg/dL (0.2-1.0); CALCIUM 8.7 mg/dL (8.5-10.1); CO2 30 mmol/L (21-32); CREATININE 1.1 mg/dL (0.55-1.02); GLUCOSE,RANDOM 95 mg/dL (74-106); SGOT/AST 16 U/L (15-37); SGPT/ALT 18 U/L (12-78); TOT PROT 6.7 g/dl (6.4-8.2)
[2017-01-29] MEDS: ACETAMINOPHEN 325 MG TABLET (FP) PO PRN (08:34)
[2017-01-29] MEDS ORDERED: PT OWN MED DRAWER 7, Y5N ONE (09:13)
[2017-01-29] MEDS: ASPIRIN 81 MG CHEWABLE TABLETS PO SCH (09:19)
[2017-01-29] MEDS: SPIRONOLACTONE 25 MG TABLET (FP) PO SCH (09:19)
[2017-01-29] MEDS: SERTRALINE HCL 50 MG TABLET (FP) PO SCH (09:20)
[2017-01-29] MEDS: HEPARIN NA (PORCINE) 5,000 UNITS/ML 1ML VIAL SQ SCH ×2 (09:21→21:10)
[2017-01-29] MEDS: PATIENT'S OWN MEDICATION (NON-FORMULARY) (Fluticasone/Vilanterol [Breo Ellipta 200-25 Mcg IH SCH (09:29)
[2017-01-29] MEDS: PATIENT'S OWN MEDICATION (NON-FORMULARY) (Umeclidinium Bromide [Incruse Ellipta] 1 PUFF) IH SCH (09:30)
[2017-01-29] MEDS: PANTOPRAZOLE 20 MG TABLET (FP) PO SCH (09:45)
--- NOTE | 2017-01-29 10:19 | PN ---
Progress Note, Physician History of Present Illness: Patient feels about the same this morning, still tired. Tolerated the blood transfusion OK yesterday. CT showed no sign of bleed from AAA and no bowel movement yesterday. Iron studies coming back with low iron. - Current Medication List Current Medications: Active Medications Acetaminophen (Tylenol -) 650 mg PO Q6H PRN PRN Reason: FEVER OR PAIN Last Admin: 01/29/17 08:34 Dose: 650 mg Aspirin (Asa -) 81 mg PO DAILY [facility] Last Admin: 01/29/17 09:19 Dose: 81 mg Atorvastatin Calcium (Lipitor -) 10 mg PO HS [facility] Last Admin: 01/28/17 21:07 Dose: 10 mg Furosemide (Lasix -) 20 mg PO DAILY@1400 [facility] Last Admin: 01/27/17 14:43 Dose: 20 mg Heparin Sodium (Porcine) (Heparin -) 5,000 unit SQ BID [facility] Last Admin: 01/29/17 09:21 Dose: 5,000 unit Non-Formulary Medication (Fluticasone/Vilanterol [Breo Ellipta 200-25 Mcg Inh]) 1 puff IH DAILY [facility] Last Admin: 01/29/17 09:29 Dose: 1 puff Non-Formulary Medication (Umeclidinium [place] [Incruse Ellipta]) 1 puff IH DAILY [facility] Last Admin: 01/29/17 09:30 Dose: 1 puff (Xopenex 0.63mg/3ml) 1 dose NEB TIDR [facility] Pantoprazole Sodium (Protonix -) 20 mg PO DAILY [facility] Last Admin: 01/29/17 09:45 Dose: 20 mg Sertraline HCl (Zoloft -) 100 mg PO DAILY [facility] Last Admin: 01/29/17 09:20 Dose: 100 mg Spironolactone (Aldactone -) 25 mg PO DAILY [facility] Last Admin: 01/29/17 09:19 Dose: 25 mg - Objective Vital Signs: Vital Signs Temperature 98.8 F 01/29/17 07:02 Pulse Rate 89 01/29/17 08:10 Respiratory Rate 20 01/29/17 07:02 Blood Pressure 118/64 01/29/17 08:10 O2 Sat by Pulse Oximetry (%) 100 01/28/17 21:00 Constitutional: Yes: No Distress, Calm HENT: Yes: Other (ecchymosis left face with left orbital swelling) Neck: Yes: Supple, Trachea Midline Cardiovascular: Yes: Regular Rate and Rhythm, S1, S2. No: Murmur Respiratory: Yes: Regular, Diminished (mild, bilaterally) Gastrointestinal: Yes: Normal Bowel Sounds, Soft. No: Distention, Tenderness Edema: No Neurological: Yes: Alert, Oriented Labs: CBC, BMP 01/29/17 06:10 01/29/17 06:10 Assessment/Plan Current Active Problems AAA (abdominal aortic aneurysm) without rupture (Acute) Acute and chronic respiratory failure (Acute) Anemia (Acute) Carotid artery stenosis (Acute) Fall (Acute) Pulmonary hypertension (Acute) Sleep apnea in adult (Acute) -still awaiting stool guaiac (but likely no active bleeding) -iron studies reflective of deficiency -will start PO iron -cont COPD treatment
[2017-01-29] MEDS: FERROUS SO4 325 MG TABLET (FP) PO SCH (10:49)
[2017-01-29] MEDS: ASCORBIC ACID 500 MG TABLET (FP) PO SCH (10:50)
--- NOTE | 2017-01-29 11:52 | PN ---
Progress Note (short form) - Note Progress Note: Progress Note: Patient seen and examined No complaints Vital Signs Period Temp Pulse Resp BP Sys/Le Pulse Ox Last 24 Hr 97.8 F-98.8 F 80-96 20-22 115-157/52-85 97-100 Constitutional: Yes: Well Nourished, No Distress, Calm Eyes: Yes: HENT: Yes: extensive bruising of the L. side of the face Cardiovascular: Yes: Regular Rate and Rhythm, Murmur. No: Gallop, Rub Respiratory: Yes: Regular, CTA Bilaterally, On Nasal O2. No: Rales, Rhonchi, Wheezes Gastrointestinal: Yes: Normal Bowel Sounds, Soft. No: Distention, Tenderness Extremities: Yes: WNL Edema: No CBC, BMP 01/29/17 06:10 01/29/17 06:10 Labs: reviewed A/P - Problems (1) COPD exacerbation Code(s): J44.1 - CHRONIC OBSTRUCTIVE PULMONARY DISEASE W (ACUTE) EXACERBATION (2) Acute and chronic respiratory failure Code(s): J96.20 - ACUTE AND CHR RESP FAILURE, UNSP W HYPOXIA OR HYPERCAPNIA (3) Fall Code(s): W19.XXXA - UNSPECIFIED FALL, INITIAL ENCOUNTER Qualifiers: Encounter type: initial encounter Qualified Code(s): W19.XXXA - Unspecified fall, initial encounter (4) Carotid artery stenosis Code(s): I65.29 - OCCLUSION AND STENOSIS OF UNSPECIFIED CAROTID ARTERY Qualifiers: Laterality: bilateral Qualified Code(s): I65.23 - Occlusion and stenosis of bilateral carotid arteries (5) CHF (congestive heart failure) Code(s): I50.9 - HEART FAILURE, UNSPECIFIED (6) Aortic stenosis Code(s): I35.0 - NONRHEUMATIC AORTIC (VALVE) STENOSIS (7) AAA (abdominal aortic aneurysm) without rupture Code(s): I71.4 - ABDOMINAL AORTIC ANEURYSM, WITHOUT RUPTURE (8) Anemia Assessment/Plan: -low iron and iron saturation is consistent with iron deficiency anemia along with acute blood loss anemia contributing to the current anemia -her Hb has significantly improved with the blood transfusion -I agree with the Fe So4 and can gradualyl increase it to tid -I will also check a ferritin now even though doubt its accuracy -She says she ahd a colonoscopy in the apst 10 years and was ok -I agree with stool guiaic and if +ve a GI eval or else we can await response to iron and recovery from the acute blood loss
--- NOTE | 2017-01-29 12:00 | PN ---
Progress Note, Physician Chief Complaint: pulmonary alert,no distress,mild dyspnea with exertion - Current Medication List Current Medications: Active Medications Acetaminophen (Tylenol -) 650 mg PO Q6H PRN PRN Reason: FEVER OR PAIN Last Admin: 01/29/17 08:34 Dose: 650 mg Ascorbic Acid (Vitamin C -) 500 mg PO DAILY [facility] Last Admin: 01/29/17 10:50 Dose: 500 mg Aspirin (Asa -) 81 mg PO DAILY [facility] Last Admin: 01/29/17 09:19 Dose: 81 mg Atorvastatin Calcium (Lipitor -) 10 mg PO HS [facility] Last Admin: 01/28/17 21:07 Dose: 10 mg Ferrous Sulfate (Feosol -) 325 mg PO DAILY [facility] Last Admin: 01/29/17 10:49 Dose: 325 mg Furosemide (Lasix -) 20 mg PO DAILY@1400 [facility] Last Admin: 01/27/17 14:43 Dose: 20 mg Heparin Sodium (Porcine) (Heparin -) 5,000 unit SQ BID [facility] Last Admin: 01/29/17 09:21 Dose: 5,000 unit Non-Formulary Medication (Fluticasone/Vilanterol [Breo Ellipta 200-25 Mcg Inh]) 1 puff IH DAILY [facility] Last Admin: 01/29/17 09:29 Dose: 1 puff Non-Formulary Medication (Umeclidinium [place] [Incruse Ellipta]) 1 puff IH DAILY [facility] Last Admin: 01/29/17 09:30 Dose: 1 puff (Xopenex 0.63mg/3ml) 1 dose NEB TIDR [facility] Pantoprazole Sodium (Protonix -) 20 mg PO DAILY [facility] Last Admin: 01/29/17 09:45 Dose: 20 mg Sertraline HCl (Zoloft -) 100 mg PO DAILY [facility] Last Admin: 01/29/17 09:20 Dose: 100 mg Spironolactone (Aldactone -) 25 mg PO DAILY [facility] Last Admin: 01/29/17 09:19 Dose: 25 mg - Objective Vital Signs: Vital Signs Temperature 98.8 F 01/29/17 07:02 Pulse Rate 89 01/29/17 08:10 Respiratory Rate 20 01/29/17 07:02 Blood Pressure 118/64 01/29/17 08:10 O2 Sat by Pulse Oximetry (%) 97 01/29/17 09:00 Constitutional: Yes: Calm, Thin Eyes: Yes: WNL HENT: Yes: Other Cardiovascular: Yes: Regular Rate and Rhythm, S1, S2 Respiratory: Yes: Rales (bibasilar crackles) Gastrointestinal: Yes: Normal Bowel Sounds, Soft Extremities: Yes: WNL Edema: No Labs: CBC, BMP 01/29/17 06:10 01/29/17 06:10 Problem List - Problems (1) AAA (abdominal aortic aneurysm) without rupture Code(s): I71.4 - ABDOMINAL AORTIC ANEURYSM, WITHOUT RUPTURE (2) Acute and chronic respiratory failure Code(s): J96.20 - ACUTE AND CHR RESP FAILURE, UNSP W HYPOXIA OR HYPERCAPNIA (3) Anemia Code(s): D64.9 - ANEMIA, UNSPECIFIED (4) Carotid artery stenosis Code(s): I65.29 - OCCLUSION AND STENOSIS OF UNSPECIFIED CAROTID ARTERY Qualifiers: Laterality: bilateral Qualified Code(s): I65.23 - Occlusion and stenosis of bilateral carotid arteries (5) Fall Code(s): W19.XXXA - UNSPECIFIED FALL, INITIAL ENCOUNTER Qualifiers: Encounter type: initial encounter Qualified Code(s): W19.XXXA - Unspecified fall, initial encounter (6) Aortic stenosis Code(s): I35.0 - NONRHEUMATIC AORTIC (VALVE) STENOSIS (7) CHF (congestive heart failure) Code(s): I50.9 - HEART FAILURE, UNSPECIFIED (8) COPD exacerbation Code(s): J44.1 - CHRONIC OBSTRUCTIVE PULMONARY DISEASE W (ACUTE) EXACERBATION (9) Hypoxia Code(s): R09.02 - HYPOXEMIA (10) PVD (peripheral vascular disease) Code(s): I73.9 - PERIPHERAL VASCULAR DISEASE, UNSPECIFIED (11) Pulmonary hypertension Code(s): I27.2 - OTHER SECONDARY PULMONARY HYPERTENSION (12) Sleep apnea in adult Code(s): G47.30 - SLEEP APNEA, UNSPECIFIED Assessment/Plan IMP ACUTE ON CHRONIC HYPOXEMIC FAILURE COPD SEVERE PULMONARY HTN SEVERE AORTIC STENOSIS SEVERE OSAS CAROTID STENOSIS CHF S/P MECHANICAL FALL AAA S/P ATTEMPTED REPAIR ANEMIA PLAN O2 INHALED BRONCHODILATORS MONITOR H+H TRANSFUSE DR KLINE Problem List - Problems (1) AAA (abdominal aortic aneurysm) without rupture Code(s): I71.4 - ABDOMINAL AORTIC ANEURYSM, WITHOUT RUPTURE (2) Acute and chronic respiratory failure Code(s): J96.20 - ACUTE AND CHR RESP FAILURE, UNSP W HYPOXIA OR HYPERCAPNIA (3) Anemia Code(s): D64.9 - ANEMIA, UNSPECIFIED (4) Carotid artery stenosis Code(s): I65.29 - OCCLUSION AND STENOSIS OF UNSPECIFIED CAROTID ARTERY Qualifiers: Laterality: bilateral Qualified Code(s): I65.23 - Occlusion and stenosis of bilateral carotid arteries (5) Fall Code(s): W19.XXXA - UNSPECIFIED FALL, INITIAL ENCOUNTER Qualifiers: Encounter type: initial encounter Qualified Code(s): W19.XXXA - Unspecified fall, initial encounter (6) Aortic stenosis Code(s): I35.0 - NONRHEUMATIC AORTIC (VALVE) STENOSIS (7) CHF (congestive heart failure) Code(s): I50.9 - HEART FAILURE, UNSPECIFIED (8) COPD exacerbation Code(s): J44.1 - CHRONIC OBSTRUCTIVE PULMONARY DISEASE W (ACUTE) EXACERBATION (9) Hypoxia Code(s): R09.02 - HYPOXEMIA (10) PVD (peripheral vascular disease) Code(s): I73.9 - PERIPHERAL VASCULAR DISEASE, UNSPECIFIED (11) Pulmonary hypertension Code(s): I27.2 - OTHER SECONDARY PULMONARY HYPERTENSION (12) Sleep apnea in adult Code(s): G47.30 - SLEEP APNEA, UNSPECIFIED
[2017-01-29] MEDS: FUROSEMIDE 20 MG TABLET (FP) PO SCH (13:24)
[2017-01-29] MEDS: ATORVASTATIN CA 10 MG TABLET (FP) PO SCH (21:09)
[2017-01-30] MEDS: ACETAMINOPHEN 325 MG TABLET (FP) PO PRN ×2 (02:28→17:41)
[2017-01-30] MEDS: XOPENEX 0.63 MG/3 ML NEB SCH ×3 (06:30→21:32)
[2017-01-30 08:39] LABS: BASOPHIL 2.3 % (0-2.0); EOSINOPHIL 4.6 % (0-4.5); MCH 26.5 pg (25.7-33.7); MCHC 32.8 g/dl (32.0-36.0); MEAN CELL VOLUME 80.7 fl (80-96); NEUTROPHILS 71.6 % (42.8-82.8); PLATELET COUNT 248 K/MM3 (134-434); RDW 15.8 % (11.6-15.6); WHITE BLOOD COUNT 7.9 K/mm3 (4.0-10.0)
[2017-01-30 09:03] LABS: ANION GAP 7 (8-16); CALCIUM 8.9 mg/dL (8.5-10.1); CO2 30 mmol/L (21-32); GLUCOSE,RANDOM 97 mg/dL (74-106)
[2017-01-30] MEDS: ASPIRIN 81 MG CHEWABLE TABLETS PO SCH (09:38)
[2017-01-30] MEDS: SPIRONOLACTONE 25 MG TABLET (FP) PO SCH (09:38)
[2017-01-30] MEDS: FERROUS SO4 325 MG TABLET (FP) PO SCH (09:38)
[2017-01-30] MEDS: ASCORBIC ACID 500 MG TABLET (FP) PO SCH (09:39)
[2017-01-30] MEDS: PATIENT'S OWN MEDICATION (NON-FORMULARY) (Fluticasone/Vilanterol [Breo Ellipta 200-25 Mcg IH SCH (09:39)
[2017-01-30] MEDS: PANTOPRAZOLE 20 MG TABLET (FP) PO SCH (09:39)
[2017-01-30] MEDS: PATIENT'S OWN MEDICATION (NON-FORMULARY) (Umeclidinium Bromide [Incruse Ellipta] 1 PUFF) IH SCH (09:39)
[2017-01-30] MEDS: HEPARIN NA (PORCINE) 5,000 UNITS/ML 1ML VIAL SQ SCH ×2 (09:39→21:28)
[2017-01-30] MEDS: SERTRALINE HCL 50 MG TABLET (FP) PO SCH (09:39)
--- NOTE | 2017-01-30 09:52 | PN ---
Progress Note (short form) - Note Progress Note: Patient admitted with mechanical falls causing severe ecchymosis over left eye and forehead was noted to have sever anemia requiring 2 units packed cells ? related to her falls. Hx COPD, AAA with too high risk at [facility] for surgical Rx, Hypertension, PVD, carotid artery stenosis and CHF. patient now afraid to walk on her own. PT to begin today. On Exam: Vital Signs Temp 98.2 F 01/30/17 09:05 Pulse 81 01/30/17 09:05 Resp 18 01/30/17 09:05 BP 129/51 01/30/17 09:05 Pulse Ox 98 01/29/17 21:00 Intake & Output 01/29/17 01/29/17 01/30/17 11:59 23:59 11:59 Intake Total 240 300 275 Balance 240 300 275 Intake: Oral 240 300 275 Other: Voiding Method Toilet Toilet Toilet # Unmeasured Voids Void 1 1 1 Bowel Movement No No Yes Alert resolving ecchymotic area left side of face and forehead Carotids; No obvious bruit Chest:Decreased breath sounds Cor: 2/6M Ext; No Edema Abnormal Lab Results 01/29/17 01/30/17 01/30/17 06:10 07:05 07:05 RDW 15.8 H Eosinophils % 4.6 H Basophils % 2.3 H Anion Gap 7 L BUN 20 H Iron 266 H IMP: Mechanical falls Severe Iron def anemia ? cause COPD Hx: CHF AAA now 6.9CM Hypertension Plan: F/U lab Stool Guiac PT
--- NOTE | 2017-01-30 12:54 | CONSULT ---
Consult Consult Specialty:: Vascular Surgery Reason for Consultation:: Enlarging AAA - History of Present Illness History of Present Illness: 81 year old woman with known AAA. She was evaluated last year for 5.6 cm AAA with short neck and an attempt to repair with fenestrated endograft was done at [facility].This was unsuccessful due to small iliac arteries which would no accept the endograft catheter (24 fr). Bilateral femoral endarterectomies were performed. There has been no follow-up since September. Jes is now admitted after several falls and facial trauma. She denies any dizziness or loss of consciousness. She has no abdominal or back pain. - History Source History Provided By: Patient, Medical Record - Past Medical History Cardio/Vascular: Yes: Aortic Stenosis, HTN, Murmur Pulmonary: Yes: Bronchitis, COPD Gastrointestinal: Yes: Other (had colonoscopy ? 5 yrs ago). 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 [employer] History of Recent Travel: No Home Medications - Allergies Allergies/Adverse Reactions: Allergies Allergy/AdvReac Type Severity Reaction Status Date / Time albuterol AdvReac Tachycardia Verified 01/27/17 18:34 - Home Medications Home Medications: Ambulatory Orders Pantoprazole Sodium [Protonix -] 20 mg PO DAILY #30 tablet.ec 05/07/14 Furosemide 20 mg PO DAILY 01/26/17 Aspirin [ASA -] 81 mg PO DAILY 01/27/17 Atorvastatin Calcium 10 mg PO HS 01/27/17 Fluticasone/Vilanterol [Breo Ellipta 200-25 Mcg INH] 1 puff IH DAILY 01/27/17 Levalbuterol HCl [Xopenex] 0.63 mg NEB TID 01/27/17 Sertraline HCl [Zoloft] 100 mg PO DAILY 01/27/17 Spironolactone [Aldactone] 25 mg PO DAILY 01/27/17 Umeclidinium [place] [Incruse Ellipta] 1 puff IH DAILY 01/27/17 Family Disease History - Family Disease History Family Disease History: Other: Father (cirrhosis), Mother (96 old age) Physical Exam Vital Signs: Vital Signs Temperature 98.2 F 01/30/17 09:05 Pulse Rate 79 01/30/17 10:32 Respiratory Rate 18 01/30/17 09:05 Blood Pressure 129/51 01/30/17 09:05 O2 Sat by Pulse Oximetry (%) 97 01/30/17 10:32 Constitutional: Yes: No Distress Eyes: Yes: EOM Intact, Other (Periorbital ecchymosis left eye) Neck: Yes: Supple Cardiovascular: Yes: Regular Rate and Rhythm Respiratory: Yes: Regular Gastrointestinal: Yes: Soft (No tenderness or mass palpable) Edema: No Peripheral Pulses WNL: Yes (2+ femoral bilateral) Labs: CBC, BMP 01/30/17 07:05 01/30/17 07:05 Imaging - Results Cat Scan: Image Reviewed (Non contrast study with no leak, AAA 6.5 cm maximum diameter) Problem List - Problems (1) AAA (abdominal aortic aneurysm) without rupture Assessment/Plan: Enlarging juxtarenal AAA - 8 mm increase in 10 months. Open repair would be high risk due to pulmonary and cardiac risk factors. Another attempt at endovascular repair with renal stenting (snorkel procedure) would allow less invasive procedure with a smaller diameter graft system. I have discussed with patient and will speak with surgeon at [facility]. Code(s): I71.4 - ABDOMINAL AORTIC ANEURYSM, WITHOUT RUPTURE (2) Anemia Assessment/Plan: Work-up in progress. Code(s): D64.9 - ANEMIA, UNSPECIFIED Qualifiers: Anemia type: iron deficiency Iron deficiency anemia type: chronic blood loss Qualified Code(s): D50.0 - Iron deficiency anemia secondary to blood loss (chronic)
--- NOTE | 2017-01-30 13:26 | PN ---
Progress Note, Physician History of Present Illness: pulmonary alert,nad,-sob,-cp . ct abdomen +AAA 6.5cm - Current Medication List Current Medications: Active Medications Acetaminophen (Tylenol -) 650 mg PO Q6H PRN PRN Reason: FEVER OR PAIN Last Admin: 01/30/17 02:28 Dose: 650 mg Ascorbic Acid (Vitamin C -) 500 mg PO DAILY [facility] Last Admin: 01/30/17 09:39 Dose: 500 mg Aspirin (Asa -) 81 mg PO DAILY [facility] Last Admin: 01/30/17 09:38 Dose: 81 mg Atorvastatin Calcium (Lipitor -) 10 mg PO HS [facility] Last Admin: 01/29/17 21:09 Dose: 10 mg Ferrous Sulfate (Feosol -) 325 mg PO DAILY [facility] Last Admin: 01/30/17 09:38 Dose: 325 mg Furosemide (Lasix -) 20 mg PO DAILY@1400 [facility] Last Admin: 01/29/17 13:24 Dose: Not Given Heparin Sodium (Porcine) (Heparin -) 5,000 unit SQ BID [facility] Last Admin: 01/30/17 09:39 Dose: 5,000 unit Non-Formulary Medication (Fluticasone/Vilanterol [Breo Ellipta 200-25 Mcg Inh]) 1 puff IH DAILY [facility] Last Admin: 01/30/17 09:39 Dose: 1 puff Non-Formulary Medication (Umeclidinium [place] [Incruse Ellipta]) 1 puff IH DAILY [facility] Last Admin: 01/30/17 09:39 Dose: 1 puff (Xopenex 0.63mg/3ml) 1 dose NEB TIDR [facility] Last Admin: 01/30/17 06:30 Dose: 1 dose Pantoprazole Sodium (Protonix -) 20 mg PO DAILY [facility] Last Admin: 01/30/17 09:39 Dose: 20 mg Sertraline HCl (Zoloft -) 100 mg PO DAILY [facility] Last Admin: 01/30/17 09:39 Dose: 100 mg Spironolactone (Aldactone -) 25 mg PO DAILY [facility] Last Admin: 01/30/17 09:38 Dose: 25 mg - Objective Vital Signs: Vital Signs Temperature 98.2 F 01/30/17 09:05 Pulse Rate 79 01/30/17 10:32 Respiratory Rate 18 01/30/17 09:05 Blood Pressure 129/51 01/30/17 09:05 O2 Sat by Pulse Oximetry (%) 97 01/30/17 10:32 Constitutional: Yes: Calm, Thin Eyes: Yes: WNL HENT: Yes: WNL Neck: Yes: WNL Cardiovascular: Yes: Regular Rate and Rhythm, S1, S2 Respiratory: Yes: Diminished Gastrointestinal: Yes: Normal Bowel Sounds, Soft Extremities: Yes: WNL Edema: No Labs: CBC, BMP 01/30/17 07:05 01/30/17 07:05 Problem List - Problems (1) AAA (abdominal aortic aneurysm) without rupture Code(s): I71.4 - ABDOMINAL AORTIC ANEURYSM, WITHOUT RUPTURE (2) Acute and chronic respiratory failure Code(s): J96.20 - ACUTE AND CHR RESP FAILURE, UNSP W HYPOXIA OR HYPERCAPNIA (3) Anemia Code(s): D64.9 - ANEMIA, UNSPECIFIED Qualifiers: Anemia type: iron deficiency Iron deficiency anemia type: chronic blood loss Qualified Code(s): D50.0 - Iron deficiency anemia secondary to blood loss (chronic) (4) Carotid artery stenosis Code(s): I65.29 - OCCLUSION AND STENOSIS OF UNSPECIFIED CAROTID ARTERY Qualifiers: Laterality: bilateral Qualified Code(s): I65.23 - Occlusion and stenosis of bilateral carotid arteries (5) Fall Code(s): W19.XXXA - UNSPECIFIED FALL, INITIAL ENCOUNTER Qualifiers: Encounter type: initial encounter Qualified Code(s): W19.XXXA - Unspecified fall, initial encounter (6) Aortic stenosis Code(s): I35.0 - NONRHEUMATIC AORTIC (VALVE) STENOSIS (7) CHF (congestive heart failure) Code(s): I50.9 - HEART FAILURE, UNSPECIFIED (8) COPD exacerbation Code(s): J44.1 - CHRONIC OBSTRUCTIVE PULMONARY DISEASE W (ACUTE) EXACERBATION (9) Hypoxia Code(s): R09.02 - HYPOXEMIA (10) PVD (peripheral vascular disease) Code(s): I73.9 - PERIPHERAL VASCULAR DISEASE, UNSPECIFIED (11) Pulmonary hypertension Code(s): I27.2 - OTHER SECONDARY PULMONARY HYPERTENSION (12) Sleep apnea in adult Code(s): G47.30 - SLEEP APNEA, UNSPECIFIED Assessment/Plan IMP ACUTE ON CHRONIC HYPOXEMIC FAILURE STABLE COPD STABLE SEVERE PULMONARY HTN SEVERE AORTIC STENOSIS SEVERE OSAS CAROTID STENOSIS CHF S/P MECHANICAL FALL AAA S/P ATTEMPTED REPAIR,increasing in size now 6.5CM ANEMIA PLAN O2 INHALED BRONCHODILATORS MONITOR H+H TRANSFUSE AAA REPAIR PER VASCULAR SURGERY DR KLINE Problem List - Problems (1) AAA (abdominal aortic aneurysm) without rupture Code(s): I71.4 - ABDOMINAL AORTIC ANEURYSM, WITHOUT RUPTURE (2) Acute and chronic respiratory failure Code(s): J96.20 - ACUTE AND CHR RESP FAILURE, UNSP W HYPOXIA OR HYPERCAPNIA (3) Anemia Code(s): D64.9 - ANEMIA, UNSPECIFIED (4) Carotid artery stenosis Code(s): I65.29 - OCCLUSION AND STENOSIS OF UNSPECIFIED CAROTID ARTERY Qualifiers: Laterality: bilateral Qualified Code(s): I65.23 - Occlusion and stenosis of bilateral carotid arteries (5) Fall Code(s): W19.XXXA - UNSPECIFIED FALL, INITIAL ENCOUNTER Qualifiers: Encounter type: initial encounter Qualified Code(s): W19.XXXA - Unspecified fall, initial encounter (6) Aortic stenosis Code(s): I35.0 - NONRHEUMATIC AORTIC (VALVE) STENOSIS (7) CHF (congestive heart failure) Code(s): I50.9 - HEART FAILURE, UNSPECIFIED (8) COPD exacerbation Code(s): J44.1 - CHRONIC OBSTRUCTIVE PULMONARY DISEASE W (ACUTE) EXACERBATION (9) Hypoxia Code(s): R09.02 - HYPOXEMIA (10) PVD (peripheral vascular disease) Code(s): I73.9 - PERIPHERAL VASCULAR DISEASE, UNSPECIFIED (11) Pulmonary hypertension Code(s): I27.2 - OTHER SECONDARY PULMONARY HYPERTENSION (12) Sleep apnea in adult Code(s): G47.30 - SLEEP APNEA, UNSPECIFIED
[2017-01-30] MEDS: FUROSEMIDE 20 MG TABLET (FP) PO SCH (13:35)
--- NOTE | 2017-01-30 18:15 | PN ---
Progress Note (short form) - Note Progress Note: cc: s/p fall S: patient denies cp, palps, dizziness, sob. Current Medications Acetaminophen (Tylenol -) 650 mg PO Q6H PRN PRN Reason: FEVER OR PAIN Last Admin: 01/30/17 17:41 Dose: 650 mg Ascorbic Acid (Vitamin C -) 500 mg PO DAILY [facility] Last Admin: 01/30/17 09:39 Dose: 500 mg Aspirin (Asa -) 81 mg PO DAILY [facility] Last Admin: 01/30/17 09:38 Dose: 81 mg Atorvastatin Calcium (Lipitor -) 10 mg PO HS [facility] Last Admin: 01/29/17 21:09 Dose: 10 mg Ferrous Sulfate (Feosol -) 325 mg PO DAILY [facility] Last Admin: 01/30/17 09:38 Dose: 325 mg Furosemide (Lasix -) 20 mg PO DAILY@1400 [facility] Last Admin: 01/30/17 13:35 Dose: 20 mg Heparin Sodium (Porcine) (Heparin -) 5,000 unit SQ BID [facility] Last Admin: 01/30/17 09:39 Dose: 5,000 unit Non-Formulary Medication (Fluticasone/Vilanterol [Breo Ellipta 200-25 Mcg Inh]) 1 puff IH DAILY [facility] Last Admin: 01/30/17 09:39 Dose: 1 puff Non-Formulary Medication (Umeclidinium [place] [Incruse Ellipta]) 1 puff IH DAILY [facility] Last Admin: 01/30/17 09:39 Dose: 1 puff (Xopenex 0.63mg/3ml) 1 dose NEB TIDR [facility] Last Admin: 01/30/17 13:45 Dose: 1 dose Pantoprazole Sodium (Protonix -) 20 mg PO DAILY [facility] Last Admin: 01/30/17 09:39 Dose: 20 mg Sertraline HCl (Zoloft -) 100 mg PO DAILY [facility] Last Admin: 01/30/17 09:39 Dose: 100 mg Spironolactone (Aldactone -) 25 mg PO DAILY [facility] Last Admin: 01/30/17 09:38 Dose: 25 mg Vital Signs - 24 hr 01/29/17 01/29/17 01/30/17 21:00 21:28 06:24 Temperature 97.9 F 98.2 F Pulse Rate 88 89 Respiratory 20 20 Rate Blood Pressure 150/82 150/88 O2 Sat by Pulse 98 Oximetry (%) 01/30/17 01/30/17 01/30/17 09:00 09:05 10:32 Temperature 98.2 F Pulse Rate 81 79 Respiratory 18 Rate Blood Pressure 129/51 O2 Sat by Pulse 98 97 Oximetry (%) 01/30/17 15:33 Temperature 98.1 F Pulse Rate 88 Respiratory 18 Rate Blood Pressure 148/86 O2 Sat by Pulse Oximetry (%) Intake & Output 01/28/17 01/29/17 01/30/17 01/31/17 07:59 07:59 07:59 07:59 Intake Total 440 850 540 575 Balance 440 850 540 575 nad no jvd rrr s1 s2 no r/g, +as murmur cta bl, nl eff aaox3 no le e/c/c abd nt nd pos bs pos dp/pt no jaundice/diaphoresis no carotid bruits CBC, BMP 01/30/17 07:05 01/30/17 07:05 ecg 01/26/17: sr, nl intervals, no ischemic changes echo 01/2017: mild lvh. nl lv/rv. 1+ lae, severe (4.4 m/s, 78/46 mmHg) mod- sev mac, 1+ mr/tr. rvsp > 60 echo 03/2016: nl lv/rv, mod conc lvh, mod , mild mac, insuff tr for rvsp mibi 03/2016: nl mpi, nl lvef cxr: small bl effs abd CT 01/2017: reviewed. notable for enlargement of AAA to 6.5 cm. bibasilar atelectasis and small bibasilar effusions. carotid u/s 01/2017: mod plaque. possible 60-79% stenosis of KIRSTIN. bline a/p: hpi: 81 f hx copd, , htn, hld, dchf, pvd, AAA here s/p fall falls: -no indication of cardiac etiology, description seems mechanical in nature -PT eval chronic diastolic chf: -stable, cont home aldactone/lasix htn: -stable, cont aldactone/lasix hld: -cont statin : -moderate on 03/2016 echo, repeat echo with severe . But patient asx. no acute chf and falls were not related to dizziness from . con't to monitor, but no need for acute surgical intervention prior to possible AAA repair at this time. con't to monitor. AAA/carotid atherosclerosis: -pt had attempt at endorepair at [facility] but procedure was unsuccessful. Now with enlargement of AAA. Vascular surgery following. Consideration for repeat attempt at endorepair ongoing. -cont current cardiac meds, - will defer to vascular regarding further eval/mgm't of carotid atherosclerosis copd, severe pulm htn: -suspect phtn sec to severe lung dz/copd -normal RV size/fcn -copd tx per pulm
[2017-01-30] MEDS: ATORVASTATIN CA 10 MG TABLET (FP) PO SCH (21:28)
[2017-01-31 09:04] LABS: BASOPHIL 1.9 % (0-2.0); EOSINOPHIL 4.5 % (0-4.5); MCH 26.6 pg (25.7-33.7); MCHC 32.5 g/dl (32.0-36.0); MEAN CELL VOLUME 81.8 fl (80-96); MEAN PLT VOLUME 8.2 fl (7.5-11.1); PLATELET COUNT 227 K/MM3 (134-434); RDW 16.5 % (11.6-15.6); WHITE BLOOD COUNT 7.3 K/mm3 (4.0-10.0)
[2017-01-31 09:30] LABS: ANION GAP 7 (8-16); CALCIUM 8.6 mg/dL (8.5-10.1); CO2 32 mmol/L (21-32); CREATININE 0.9 mg/dL (0.55-1.02); GLUCOSE,RANDOM 97 mg/dL (74-106)
[2017-01-31] MEDS: SERTRALINE HCL 50 MG TABLET (FP) PO SCH (10:19)
[2017-01-31] MEDS: FERROUS SO4 325 MG TABLET (FP) PO SCH (10:19)
[2017-01-31] MEDS: ASPIRIN 81 MG CHEWABLE TABLETS PO SCH (10:19)
[2017-01-31] MEDS: ASCORBIC ACID 500 MG TABLET (FP) PO SCH (10:20)
[2017-01-31] MEDS: PANTOPRAZOLE 20 MG TABLET (FP) PO SCH (10:20)
[2017-01-31] MEDS: SPIRONOLACTONE 25 MG TABLET (FP) PO SCH (10:21)
[2017-01-31] MEDS: PATIENT'S OWN MEDICATION (NON-FORMULARY) (Fluticasone/Vilanterol [Breo Ellipta 200-25 Mcg IH SCH (10:22)
[2017-01-31] MEDS: HEPARIN NA (PORCINE) 5,000 UNITS/ML 1ML VIAL SQ SCH ×2 (10:23→22:00)
[2017-01-31] MEDS: PATIENT'S OWN MEDICATION (NON-FORMULARY) (Umeclidinium Bromide [Incruse Ellipta] 1 PUFF) IH SCH (10:23)
[2017-01-31] MEDS: ACETAMINOPHEN 325 MG TABLET (FP) PO PRN ×2 (10:28→17:58)
--- NOTE | 2017-01-31 10:32 | PN ---
Progress Note, Physician Chief Complaint: No SOB or pain but still fearful about walking alone due to recent falls. History of Present Illness: Patient with mechanical falls at home possibly exacerbated by anemia. However large facial bruise was sustained in her recent fall which may have contributed to her 7.7 Hb on admission. Iron level also low and question of a possible underlying cause. Still no BM so laxative ordered today. Vascular MD called me yesterday Re: AAA 6.9 cm and her recent admission to [facility] when a stent was unable to be placed. Severe on recent Echocardiogram. PT still on order. - Current Medication List Current Medications: Active Medications Acetaminophen (Tylenol -) 650 mg PO Q6H PRN PRN Reason: FEVER OR PAIN Last Admin: 01/30/17 17:41 Dose: 650 mg Ascorbic Acid (Vitamin C -) 500 mg PO DAILY [facility] Last Admin: 01/31/17 10:20 Dose: 500 mg Aspirin (Asa -) 81 mg PO DAILY [facility] Last Admin: 01/31/17 10:19 Dose: 81 mg Atorvastatin Calcium (Lipitor -) 10 mg PO HS [facility] Last Admin: 01/30/17 21:28 Dose: 10 mg Ferrous Sulfate (Feosol -) 325 mg PO DAILY [facility] Last Admin: 01/31/17 10:19 Dose: 325 mg Furosemide (Lasix -) 20 mg PO DAILY@1400 [facility] Last Admin: 01/30/17 13:35 Dose: 20 mg Heparin Sodium (Porcine) (Heparin -) 5,000 unit SQ BID [facility] Last Admin: 01/31/17 10:23 Dose: 5,000 unit Non-Formulary Medication (Fluticasone/Vilanterol [Breo Ellipta 200-25 Mcg Inh]) 1 puff IH DAILY [facility] Last Admin: 01/31/17 10:22 Dose: 1 puff Non-Formulary Medication (Umeclidinium [place] [Incruse Ellipta]) 1 puff IH DAILY [facility] Last Admin: 01/31/17 10:23 Dose: 1 puff (Xopenex 0.63mg/3ml) 1 dose NEB TIDR [facility] Last Admin: 01/30/17 21:32 Dose: 1 dose Pantoprazole Sodium (Protonix -) 20 mg PO DAILY [facility] Last Admin: 01/31/17 10:20 Dose: 20 mg Polyethylene Glycol (Miralax (For Daily Use) -) 17 gm PO DAILY [facility] Sertraline HCl (Zoloft -) 100 mg PO DAILY [facility] Last Admin: 01/31/17 10:19 Dose: 100 mg Spironolactone (Aldactone -) 25 mg PO DAILY [facility] Last Admin: 01/31/17 10:21 Dose: 25 mg - Objective Vital Signs: Vital Signs Temperature 99 F 01/31/17 06:00 Pulse Rate 94 H 01/31/17 06:00 Respiratory Rate 20 01/31/17 06:00 Blood Pressure 147/79 01/31/17 06:00 O2 Sat by Pulse Oximetry (%) 97 01/30/17 21:00 Constitutional: Yes: Calm, Pallor Cardiovascular: Yes: Regular Rate and Rhythm, Murmur Respiratory: Yes: Diminished. No: Rales, Wheezes Gastrointestinal: Yes: Soft. No: Palpable Mass Extremities: No: Cool Edema: No Peripheral Pulses: Left Doralis Pedis: 0, Right Dorsalis Pedis: 0 Integumentary: Yes: Bruising (mainly left facial areas slow to resolve.) Neurological: Yes: Alert, Oriented Labs: CBC, BMP 01/31/17 07:35 01/31/17 07:35 Problem List - Problems (1) AAA (abdominal aortic aneurysm) without rupture Assessment/Plan: 6.9CM. Had attempt at stent in [facility] Seen by Vascular MD here. Code(s): I71.4 - ABDOMINAL AORTIC ANEURYSM, WITHOUT RUPTURE (2) Acute and chronic respiratory failure Assessment/Plan: Stable currently and no wheezes . Seen by Pulmonary MD. Code(s): J96.20 - ACUTE AND CHR RESP FAILURE, UNSP W HYPOXIA OR HYPERCAPNIA (3) Anemia Assessment/Plan: Hb stable at 10.2GM. Await stool guiac. F/U lab ordered. Code(s): D64.9 - ANEMIA, UNSPECIFIED Qualifiers: Anemia type: iron deficiency Iron deficiency anemia type: chronic blood loss Qualified Code(s): D50.0 - Iron deficiency anemia secondary to blood loss (chronic) (4) Carotid artery stenosis Assessment/Plan: Up to 69% stenosis on sonogram. Code(s): I65.29 - OCCLUSION AND STENOSIS OF UNSPECIFIED CAROTID ARTERY Qualifiers: Laterality: bilateral Qualified Code(s): I65.23 - Occlusion and stenosis of bilateral carotid arteries (5) Fall Assessment/Plan: Mechanical at home; several times. Will need SNF post hospital. Code(s): W19.XXXA - UNSPECIFIED FALL, INITIAL ENCOUNTER Qualifiers: Encounter type: initial encounter Qualified Code(s): W19.XXXA - Unspecified fall, initial encounter (6) Pulmonary hypertension Assessment/Plan: stable. Code(s): I27.2 - OTHER SECONDARY PULMONARY HYPERTENSION (7) Aortic stenosis Assessment/Plan: Now read as severe on recent Echo; cardiology following patient. Code(s): I35.0 - NONRHEUMATIC AORTIC (VALVE) STENOSIS
[2017-01-31] MEDS: XOPENEX 0.63 MG/3 ML NEB SCH ×3 (13:36→22:16)
[2017-01-31] MEDS: POLYETHYLENE GLYCOL 3350 119 GM BTL PO SCH (14:52)
[2017-01-31] MEDS: CYANOCOBALAMIN 1,000 MCG TABLET (FP) PO SCH (14:52)
[2017-01-31] MEDS: FUROSEMIDE 20 MG TABLET (FP) PO SCH (14:52)
--- NOTE | 2017-01-31 15:12 | PN ---
Progress Note (short form) - Note Progress Note: Patient seen and examined. She says she feel better by the days, and her bruising has been decreasing.Otherwise she feels no SOB, chest pain Constitutional: Yes: Well Nourished, No Distress, Calm Eyes: Yes: HENT: Yes: extensive bruising of the L. side of the face Cardiovascular: Yes: Regular Rate and Rhythm, Murmur. No: Gallop, Rub Respiratory: Yes: Regular, CTA Bilaterally, On Nasal O2. No: Rales, Rhonchi, Wheezes Gastrointestinal: Yes: Normal Bowel Sounds, Soft. No: Distention, Tenderness Extremities: Yes: WNL Edema: No Last Vital Signs Temp Pulse Resp BP Pulse Ox 98.2 F 88 18 103/52 96 01/31/17 14:57 01/31/17 14:57 01/31/17 14:57 01/31/17 14:57 01/31/17 11:22 CBC, BMP 01/31/17 07:35 01/31/17 07:35 Current Medications Generic Name Dose Route Start Last Admin Trade Name Freq PRN Reason Stop Dose Admin Acetaminophen 650 mg 01/27/17 09:37 01/31/17 10:28 Tylenol - PO 650 mg Q6H PRN Administration FEVER OR PAIN Ascorbic Acid 500 mg 01/29/17 10:30 01/31/17 10:20 Vitamin C - PO 500 mg DAILY ANG[facility]INA Administration Aspirin 81 mg 01/27/17 11:30 01/31/17 10:19 Asa - PO 81 mg DAILY ANG[facility]INA Administration Atorvastatin Calcium 10 mg 01/27/17 22:00 01/30/17 21:28 Lipitor - PO 10 mg HS ANGELINA Administration Cyanocobalamin 1,000 mcg 01/31/17 10:45 01/31/17 14:52 Vitamin B12 - PO 1,000 mcg DAILY ANGELINA Administration Ferrous Sulfate 325 mg 01/29/17 10:30 01/31/17 10:19 Feosol - PO 325 mg DAILY AN[facility]INA Administration Furosemide 20 mg 01/27/17 14:00 01/31/17 14:52 Lasix - PO 20 mg DAILY@1400 ANGELINA Administration Heparin Sodium (Porcine) 5,000 unit 01/26/17 22:00 01/31/17 10:23 Heparin - SQ 5,000 unit BID ANGELINA Administration Non-Formulary Medication 1 puff 01/27/17 12:08 08/08/17 10:22 Fluticasone/Vilanterol [Breo Ellipta 200-25 Mcg Inh] IH 1 puff DAILY [facility] Administration Non-Formulary Medication 1 puff 01/27/17 12:08 01/31/17 10:23 Umeclidinium [place] [Incruse Ellipta] IH 1 puff DAILY [facility] Administration (Xopenex 0.63mg/3ml) 1 dose 01/29/17 08:11 01/31/17 13:45 NEB 1 dose TIDR ANGELINA Administration Pantoprazole Sodium 20 mg 01/27/17 10:00 01/31/17 10:20 Protonix - PO 20 mg DAILY [facility] Administration Polyethylene Glycol 17 gm 01/31/17 10:30 01/31/17 14:52 Miralax (For Daily Use) - PO 17 grams DAILY [facility] Administration Sertraline HCl 100 mg 01/28/17 10:00 01/31/17 10:19 Zoloft - PO 100 mg DAILY [facility] Administration Spironolactone 25 mg 01/27/17 11:45 01/31/17 10:21 Aldactone - PO 25 mg DAILY AN[facility] Administration Assessment/Plan: Fe-deficiency anemia s/p fall AAA Severe -s.p transfusion, Hgb Stable (low iron and iron saturation is consistent with iron deficiency anemia along with acute blood loss anemia contributing to the current anemia) -continue with the Fe So4 and can gradually increase it to tid -awaiting stool occult -B12 less than 300, await MMA and Homocysteine
--- NOTE | 2017-01-31 16:23 | PN ---
Progress Note, Physician History of Present Illness: pulmonary alert,no distress,-sob. - Current Medication List Current Medications: Active Medications Acetaminophen (Tylenol -) 650 mg PO Q6H PRN PRN Reason: FEVER OR PAIN Last Admin: 01/31/17 10:28 Dose: 650 mg Ascorbic Acid (Vitamin C -) 500 mg PO DAILY [facility] Last Admin: 01/31/17 10:20 Dose: 500 mg Aspirin (Asa -) 81 mg PO DAILY [facility] Last Admin: 01/31/17 10:19 Dose: 81 mg Atorvastatin Calcium (Lipitor -) 10 mg PO HS [facility] Last Admin: 01/30/17 21:28 Dose: 10 mg Cyanocobalamin (Vitamin B12 -) 1,000 mcg PO DAILY [facility] Last Admin: 01/31/17 14:52 Dose: 1,000 mcg Ferrous Sulfate (Feosol -) 325 mg PO DAILY [facility] Last Admin: 01/31/17 10:19 Dose: 325 mg Furosemide (Lasix -) 20 mg PO DAILY@1400 [facility] Last Admin: 01/31/17 14:52 Dose: 20 mg Heparin Sodium (Porcine) (Heparin -) 5,000 unit SQ BID [facility] Last Admin: 01/31/17 10:23 Dose: 5,000 unit Non-Formulary Medication (Fluticasone/Vilanterol [Breo Ellipta 200-25 Mcg Inh]) 1 puff IH DAILY [facility] Last Admin: 01/31/17 10:22 Dose: 1 puff Non-Formulary Medication (Umeclidinium [place] [Incruse Ellipta]) 1 puff IH DAILY [facility] Last Admin: 01/31/17 10:23 Dose: 1 puff (Xopenex 0.63mg/3ml) 1 dose NEB TIDR [facility] Last Admin: 01/31/17 13:45 Dose: 1 dose Pantoprazole Sodium (Protonix -) 20 mg PO DAILY [facility] Last Admin: 01/31/17 10:20 Dose: 20 mg Polyethylene Glycol (Miralax (For Daily Use) -) 17 gm PO DAILY [facility] Last Admin: 01/31/17 14:52 Dose: 17 grams Sertraline HCl (Zoloft -) 100 mg PO DAILY [facility] Last Admin: 01/31/17 10:19 Dose: 100 mg Spironolactone (Aldactone -) 25 mg PO DAILY [facility] Last Admin: 01/31/17 10:21 Dose: 25 mg - Objective Vital Signs: Vital Signs Temperature 98.2 F 01/31/17 14:57 Pulse Rate 88 01/31/17 14:57 Respiratory Rate 18 01/31/17 14:57 Blood Pressure 103/52 01/31/17 14:57 O2 Sat by Pulse Oximetry (%) 96 01/31/17 11:22 Constitutional: Yes: Calm, Thin Eyes: Yes: WNL HENT: Yes: Other (ecchymosis resolving) Neck: Yes: WNL Cardiovascular: Yes: Pulse Irregular, S1, S2 Respiratory: Yes: Diminished Gastrointestinal: Yes: Normal Bowel Sounds, Soft Extremities: Yes: WNL Edema: No Labs: CBC, BMP 01/31/17 07:35 01/31/17 07:35 Problem List - Problems (1) AAA (abdominal aortic aneurysm) without rupture Code(s): I71.4 - ABDOMINAL AORTIC ANEURYSM, WITHOUT RUPTURE (2) Acute and chronic respiratory failure Code(s): J96.20 - ACUTE AND CHR RESP FAILURE, UNSP W HYPOXIA OR HYPERCAPNIA (3) Anemia Code(s): D64.9 - ANEMIA, UNSPECIFIED Qualifiers: Anemia type: iron deficiency Iron deficiency anemia type: chronic blood loss Qualified Code(s): D50.0 - Iron deficiency anemia secondary to blood loss (chronic) (4) Carotid artery stenosis Code(s): I65.29 - OCCLUSION AND STENOSIS OF UNSPECIFIED CAROTID ARTERY Qualifiers: Laterality: bilateral Qualified Code(s): I65.23 - Occlusion and stenosis of bilateral carotid arteries (5) Fall Code(s): W19.XXXA - UNSPECIFIED FALL, INITIAL ENCOUNTER Qualifiers: Encounter type: initial encounter Qualified Code(s): W19.XXXA - Unspecified fall, initial encounter (6) Aortic stenosis Code(s): I35.0 - NONRHEUMATIC AORTIC (VALVE) STENOSIS (7) CHF (congestive heart failure) Code(s): I50.9 - HEART FAILURE, UNSPECIFIED (8) COPD exacerbation Code(s): J44.1 - CHRONIC OBSTRUCTIVE PULMONARY DISEASE W (ACUTE) EXACERBATION (9) Hypoxia Code(s): R09.02 - HYPOXEMIA (10) PVD (peripheral vascular disease) Code(s): I73.9 - PERIPHERAL VASCULAR DISEASE, UNSPECIFIED (11) Pulmonary hypertension Code(s): I27.2 - OTHER SECONDARY PULMONARY HYPERTENSION (12) Sleep apnea in adult Code(s): G47.30 - SLEEP APNEA, UNSPECIFIED Assessment/Plan IMP ACUTE ON CHRONIC HYPOXEMIC FAILURE STABLE COPD STABLE SEVERE PULMONARY HTN SEVERE AORTIC STENOSIS SEVERE OSAS CAROTID STENOSIS CHF S/P MECHANICAL FALL AAA S/P ATTEMPTED REPAIR,increasing in size now 6.5CM ANEMIA PLAN O2 INHALED BRONCHODILATORS MONITOR H+H TRANSFUSE AAA REPAIR PER VASCULAR SURGERY DR KLINE Problem List - Problems (1) AAA (abdominal aortic aneurysm) without rupture Code(s): I71.4 - ABDOMINAL AORTIC ANEURYSM, WITHOUT RUPTURE (2) Acute and chronic respiratory failure Code(s): J96.20 - ACUTE AND CHR RESP FAILURE, UNSP W HYPOXIA OR HYPERCAPNIA (3) Anemia Code(s): D64.9 - ANEMIA, UNSPECIFIED (4) Carotid artery stenosis Code(s): I65.29 - OCCLUSION AND STENOSIS OF UNSPECIFIED CAROTID ARTERY Qualifiers: Laterality: bilateral Qualified Code(s): I65.23 - Occlusion and stenosis of bilateral carotid arteries (5) Fall Code(s): W19.XXXA - UNSPECIFIED FALL, INITIAL ENCOUNTER Qualifiers: Encounter type: initial encounter Qualified Code(s): W19.XXXA - Unspecified fall, initial encounter (6) Aortic stenosis Code(s): I35.0 - NONRHEUMATIC AORTIC (VALVE) STENOSIS (7) CHF (congestive heart failure) Code(s): I50.9 - HEART FAILURE, UNSPECIFIED (8) COPD exacerbation Code(s): J44.1 - CHRONIC OBSTRUCTIVE PULMONARY DISEASE W (ACUTE) EXACERBATION (9) Hypoxia Code(s): R09.02 - HYPOXEMIA (10) PVD (peripheral vascular disease) Code(s): I73.9 - PERIPHERAL VASCULAR DISEASE, UNSPECIFIED (11) Pulmonary hypertension Code(s): I27.2 - OTHER SECONDARY PULMONARY HYPERTENSION (12) Sleep apnea in adult Code(s): G47.30 - SLEEP APNEA, UNSPECIFIED
[2017-01-31] MEDS: ATORVASTATIN CA 10 MG TABLET (FP) PO SCH (22:00)
[2017-02-01] MEDS: XOPENEX 0.63 MG/3 ML NEB SCH ×3 (06:52→22:28)
[2017-02-01 07:09] LABS: BASOPHIL 1.4 % (0-2.0); EOSINOPHIL 3.6 % (0-4.5); MCH 26.8 pg (25.7-33.7); MCHC 32.6 g/dl (32.0-36.0); MEAN CELL VOLUME 82.2 fl (80-96); MEAN PLT VOLUME 8.2 fl (7.5-11.1); NEUTROPHILS 73.3 % (42.8-82.8); PLATELET COUNT 220 K/MM3 (134-434); RDW 16.6 % (11.6-15.6); WHITE BLOOD COUNT 7.2 K/mm3 (4.0-10.0)
--- NOTE | 2017-02-01 08:24 | PN ---
Progress Note, Physician Chief Complaint: Still anxious about walking alone; had BM. History of Present Illness: Patient with history of falls and iron deficiency anemia finally had PT but is still anxious because or recent falls. Had 2 units packed cells and hemoglobin slightly lower at 10GM. Will increase FeSo4 to BID. Await F/U Vascular MD Re: 6.9 AAA. Will need short term rehab post hospital depending on decision for Vascular surgery. Await stool Guiac - Current Medication List Current Medications: Active Medications Acetaminophen (Tylenol -) 650 mg PO Q6H PRN PRN Reason: FEVER OR PAIN Last Admin: 01/31/17 17:58 Dose: 650 mg Ascorbic Acid (Vitamin C -) 500 mg PO BID [facility] Aspirin (Asa -) 81 mg PO DAILY [facility] Last Admin: 01/31/17 10:19 Dose: 81 mg Atorvastatin Calcium (Lipitor -) 10 mg PO HS [facility] Last Admin: 01/31/17 22:00 Dose: 10 mg Cyanocobalamin (Vitamin B12 -) 1,000 mcg PO DAILY [facility] Last Admin: 01/31/17 14:52 Dose: 1,000 mcg Ferrous Sulfate (Feosol -) 325 mg PO BID [facility] Furosemide (Lasix -) 20 mg PO DAILY@1400 [facility] Last Admin: 01/31/17 14:52 Dose: 20 mg Heparin Sodium (Porcine) (Heparin -) 5,000 unit SQ BID [facility] Last Admin: 01/31/17 22:00 Dose: 5,000 unit Non-Formulary Medication (Fluticasone/Vilanterol [Breo Ellipta 200-25 Mcg Inh]) 1 puff IH DAILY [facility] Last Admin: 01/31/17 10:22 Dose: 1 puff Non-Formulary Medication (Umeclidinium [place] [Incruse Ellipta]) 1 puff IH DAILY [facility] Last Admin: 01/31/17 10:23 Dose: 1 puff (Xopenex 0.63mg/3ml) 1 dose NEB TIDR [facility] Last Admin: 02/01/17 06:52 Dose: Not Given Pantoprazole Sodium (Protonix -) 20 mg PO DAILY [facility] Last Admin: 01/31/17 10:20 Dose: 20 mg Polyethylene Glycol (Miralax (For Daily Use) -) 17 gm PO DAILY [facility] Last Admin: 01/31/17 14:52 Dose: 17 grams Sertraline HCl (Zoloft -) 100 mg PO DAILY [facility] Last Admin: 01/31/17 10:19 Dose: 100 mg Spironolactone (Aldactone -) 25 mg PO DAILY [facility] Last Admin: 01/31/17 10:21 Dose: 25 mg - Objective Vital Signs: Vital Signs Temperature 98.1 F 02/01/17 06:00 Pulse Rate 81 02/01/17 06:00 Respiratory Rate 20 02/01/17 06:00 Blood Pressure 126/70 02/01/17 06:00 O2 Sat by Pulse Oximetry (%) 96 01/31/17 21:00 Constitutional: Yes: Calm, Pallor Cardiovascular: Yes: Regular Rate and Rhythm, Murmur Respiratory: Yes: Diminished. No: Rales, Wheezes Gastrointestinal: Yes: Soft. No: Palpable Mass, Tenderness Genitourinary: No: Patel Present Edema: No Peripheral Pulses: Left Doralis Pedis: 0, Right Dorsalis Pedis: 0 Integumentary: Yes: Bruising (slowly clearing on face.) Neurological: Yes: Alert, Oriented Labs: CBC, BMP 02/01/17 06:00 01/31/17 07:35 Problem List - Problems (1) AAA (abdominal aortic aneurysm) without rupture Assessment/Plan: 6.9CM; await F/U Vascular MD Code(s): I71.4 - ABDOMINAL AORTIC ANEURYSM, WITHOUT RUPTURE (2) Acute and chronic respiratory failure Assessment/Plan: Still needs nasal O2. Code(s): J96.20 - ACUTE AND CHR RESP FAILURE, UNSP W HYPOXIA OR HYPERCAPNIA (3) Anemia Assessment/Plan: Slight drift in Hb to 10GM; to increase FeSo4 and Vit C to BID Code(s): D64.9 - ANEMIA, UNSPECIFIED Qualifiers: Anemia type: iron deficiency Iron deficiency anemia type: chronic blood loss Qualified Code(s): D50.0 - Iron deficiency anemia secondary to blood loss (chronic) (4) Carotid artery stenosis Assessment/Plan: 60-79% stenosis noted. Code(s): I65.29 - OCCLUSION AND STENOSIS OF UNSPECIFIED CAROTID ARTERY Qualifiers: Laterality: bilateral Qualified Code(s): I65.23 - Occlusion and stenosis of bilateral carotid arteries (5) Fall Assessment/Plan: Still anxious to ambulate alone; started PT here; will need F/U SNF Code(s): W19.XXXA - UNSPECIFIED FALL, INITIAL ENCOUNTER Qualifiers: Encounter type: initial encounter Qualified Code(s): W19.XXXA - Unspecified fall, initial encounter (6) Pulmonary hypertension Code(s): I27.2 - OTHER SECONDARY PULMONARY HYPERTENSION (7) Aortic stenosis Assessment/Plan: Cardiology evaluated; to follow. Code(s): I35.0 - NONRHEUMATIC AORTIC (VALVE) STENOSIS
[2017-02-01] MEDS: ACETAMINOPHEN 325 MG TABLET (FP) PO PRN ×2 (08:27→20:15)
[2017-02-01] MEDS: SERTRALINE HCL 50 MG TABLET (FP) PO SCH (09:17)
[2017-02-01] MEDS: HEPARIN NA (PORCINE) 5,000 UNITS/ML 1ML VIAL SQ SCH ×2 (09:17→21:22)
[2017-02-01] MEDS: PANTOPRAZOLE 20 MG TABLET (FP) PO SCH (09:17)
[2017-02-01] MEDS: ASPIRIN 81 MG CHEWABLE TABLETS PO SCH (09:17)
[2017-02-01] MEDS: CYANOCOBALAMIN 1,000 MCG TABLET (FP) PO SCH (09:17)
[2017-02-01] MEDS: FERROUS SO4 325 MG TABLET (FP) PO SCH ×2 (09:17→21:22)
[2017-02-01] MEDS: ASCORBIC ACID 500 MG TABLET (FP) PO SCH ×2 (09:17→21:22)
[2017-02-01] MEDS: SPIRONOLACTONE 25 MG TABLET (FP) PO SCH (09:17)
[2017-02-01] MEDS: PATIENT'S OWN MEDICATION (NON-FORMULARY) (Fluticasone/Vilanterol [Breo Ellipta 200-25 Mcg IH SCH (09:22)
[2017-02-01] MEDS: POLYETHYLENE GLYCOL 3350 119 GM BTL PO SCH (09:23)
[2017-02-01] MEDS: PATIENT'S OWN MEDICATION (NON-FORMULARY) (Umeclidinium Bromide [Incruse Ellipta] 1 PUFF) IH SCH (09:23)
[2017-02-01] MEDS: FUROSEMIDE 20 MG TABLET (FP) PO SCH (13:24)
--- NOTE | 2017-02-01 14:57 | PN ---
Progress Note, Physician History of Present Illness: pulmonary alert,nad,+huynh,-cp - Current Medication List Current Medications: Active Medications Acetaminophen (Tylenol -) 650 mg PO Q6H PRN PRN Reason: FEVER OR PAIN Last Admin: 02/01/17 08:27 Dose: 650 mg Ascorbic Acid (Vitamin C -) 500 mg PO BID [facility] Last Admin: 02/01/17 09:17 Dose: 500 mg Aspirin (Asa -) 81 mg PO DAILY [facility] Last Admin: 02/01/17 09:17 Dose: 81 mg Atorvastatin Calcium (Lipitor -) 10 mg PO HS [facility] Last Admin: 01/31/17 22:00 Dose: 10 mg Cyanocobalamin (Vitamin B12 -) 1,000 mcg PO DAILY [facility] Last Admin: 02/01/17 09:17 Dose: 1,000 mcg Ferrous Sulfate (Feosol -) 325 mg PO BID [facility] Last Admin: 02/01/17 09:17 Dose: 325 mg Furosemide (Lasix -) 20 mg PO DAILY@1400 [facility] Last Admin: 02/01/17 13:24 Dose: 20 mg Heparin Sodium (Porcine) (Heparin -) 5,000 unit SQ BID [facility] Last Admin: 02/01/17 09:17 Dose: 5,000 unit Non-Formulary Medication (Fluticasone/Vilanterol [Breo Ellipta 200-25 Mcg Inh]) 1 puff IH DAILY [facility] Last Admin: 02/01/17 09:22 Dose: 1 puff Non-Formulary Medication (Umeclidinium [place] [Incruse Ellipta]) 1 puff IH DAILY [facility] Last Admin: 02/01/17 09:23 Dose: 1 puff (Xopenex 0.63mg/3ml) 1 dose NEB TIDR [facility] Last Admin: 02/01/17 06:52 Dose: Not Given Pantoprazole Sodium (Protonix -) 20 mg PO DAILY [facility] Last Admin: 02/01/17 09:17 Dose: 20 mg Polyethylene Glycol (Miralax (For Daily Use) -) 17 gm PO DAILY [facility] Last Admin: 02/01/17 09:23 Dose: Not Given Sertraline HCl (Zoloft -) 100 mg PO DAILY [facility] Last Admin: 02/01/17 09:17 Dose: 100 mg Spironolactone (Aldactone -) 25 mg PO DAILY [facility] Last Admin: 02/01/17 09:17 Dose: 25 mg - Objective Vital Signs: Vital Signs Temperature 98.2 F 02/01/17 09:00 Pulse Rate 90 02/01/17 09:00 Respiratory Rate 20 02/01/17 10:00 Blood Pressure 128/81 02/01/17 09:00 O2 Sat by Pulse Oximetry (%) 96 01/31/17 21:00 Constitutional: Yes: Calm, Thin Eyes: Yes: WNL HENT: Yes: WNL Neck: Yes: Supple Cardiovascular: Yes: Regular Rate and Rhythm, S1, S2 Respiratory: Yes: Diminished Gastrointestinal: Yes: Normal Bowel Sounds, Soft Extremities: Yes: WNL Edema: No Labs: CBC, BMP 02/01/17 06:00 01/31/17 07:35 Problem List - Problems (1) AAA (abdominal aortic aneurysm) without rupture Code(s): I71.4 - ABDOMINAL AORTIC ANEURYSM, WITHOUT RUPTURE (2) Acute and chronic respiratory failure Code(s): J96.20 - ACUTE AND CHR RESP FAILURE, UNSP W HYPOXIA OR HYPERCAPNIA (3) Anemia Code(s): D64.9 - ANEMIA, UNSPECIFIED Qualifiers: Anemia type: iron deficiency Iron deficiency anemia type: chronic blood loss Qualified Code(s): D50.0 - Iron deficiency anemia secondary to blood loss (chronic) (4) Carotid artery stenosis Code(s): I65.29 - OCCLUSION AND STENOSIS OF UNSPECIFIED CAROTID ARTERY Qualifiers: Laterality: bilateral Qualified Code(s): I65.23 - Occlusion and stenosis of bilateral carotid arteries (5) Fall Code(s): W19.XXXA - UNSPECIFIED FALL, INITIAL ENCOUNTER Qualifiers: Encounter type: initial encounter Qualified Code(s): W19.XXXA - Unspecified fall, initial encounter (6) Aortic stenosis Code(s): I35.0 - NONRHEUMATIC AORTIC (VALVE) STENOSIS (7) CHF (congestive heart failure) Code(s): I50.9 - HEART FAILURE, UNSPECIFIED (8) COPD exacerbation Code(s): J44.1 - CHRONIC OBSTRUCTIVE PULMONARY DISEASE W (ACUTE) EXACERBATION (9) Hypoxia Code(s): R09.02 - HYPOXEMIA (10) PVD (peripheral vascular disease) Code(s): I73.9 - PERIPHERAL VASCULAR DISEASE, UNSPECIFIED (11) Pulmonary hypertension Code(s): I27.2 - OTHER SECONDARY PULMONARY HYPERTENSION (12) Sleep apnea in adult Code(s): G47.30 - SLEEP APNEA, UNSPECIFIED Assessment/Plan IMP ACUTE ON CHRONIC HYPOXEMIC FAILURE STABLE COPD STABLE SEVERE PULMONARY HTN SEVERE AORTIC STENOSIS SEVERE OSAS CAROTID STENOSIS CHF S/P MECHANICAL FALL AAA S/P ATTEMPTED REPAIR,increasing in size now 6.5CM ANEMIA PLAN O2 INHALED BRONCHODILATORS MONITOR H+H TRANSFUSE NEEDED AAA REPAIR PER VASCULAR SURGERY DR KLINE Problem List - Problems (1) AAA (abdominal aortic aneurysm) without rupture Code(s): I71.4 - ABDOMINAL AORTIC ANEURYSM, WITHOUT RUPTURE (2) Acute and chronic respiratory failure Code(s): J96.20 - ACUTE AND CHR RESP FAILURE, UNSP W HYPOXIA OR HYPERCAPNIA (3) Anemia Code(s): D64.9 - ANEMIA, UNSPECIFIED (4) Carotid artery stenosis Code(s): I65.29 - OCCLUSION AND STENOSIS OF UNSPECIFIED CAROTID ARTERY Qualifiers: Laterality: bilateral Qualified Code(s): I65.23 - Occlusion and stenosis of bilateral carotid arteries (5) Fall Code(s): W19.XXXA - UNSPECIFIED FALL, INITIAL ENCOUNTER Qualifiers: Encounter type: initial encounter Qualified Code(s): W19.XXXA - Unspecified fall, initial encounter (6) Aortic stenosis Code(s): I35.0 - NONRHEUMATIC AORTIC (VALVE) STENOSIS (7) CHF (congestive heart failure) Code(s): I50.9 - HEART FAILURE, UNSPECIFIED (8) COPD exacerbation Code(s): J44.1 - CHRONIC OBSTRUCTIVE PULMONARY DISEASE W (ACUTE) EXACERBATION (9) Hypoxia Code(s): R09.02 - HYPOXEMIA (10) PVD (peripheral vascular disease) Code(s): I73.9 - PERIPHERAL VASCULAR DISEASE, UNSPECIFIED (11) Pulmonary hypertension Code(s): I27.2 - OTHER SECONDARY PULMONARY HYPERTENSION (12) Sleep apnea in adult Code(s): G47.30 - SLEEP APNEA, UNSPECIFIED
[2017-02-01] MEDS: ATORVASTATIN CA 10 MG TABLET (FP) PO SCH (21:22)
[2017-02-02] MEDS: XOPENEX 0.63 MG/3 ML NEB SCH (06:57)
[2017-02-02] MEDS ORDERED: PT OWN MED DRAWER 7, Y5N ONE (07:15)
[2017-02-02 07:51] LABS: BASOPHIL 1.9 % (0-2.0); EOSINOPHIL 4.7 % (0-4.5); MCH 26.7 pg (25.7-33.7); MCHC 32.3 g/dl (32.0-36.0); MEAN CELL VOLUME 82.7 fl (80-96); MEAN PLT VOLUME 8.3 fl (7.5-11.1); NEUTROPHILS 69.6 % (42.8-82.8); PLATELET COUNT 222 K/MM3 (134-434); RDW 17.2 % (11.6-15.6); WHITE BLOOD COUNT 6.9 K/mm3 (4.0-10.0)
[2017-02-02 08:37] LABS: ANION GAP 8 (8-16); CALCIUM 9.3 mg/dL (8.5-10.1); CO2 30 mmol/L (21-32); CREATININE 0.9 mg/dL (0.55-1.02); GLUCOSE,RANDOM 94 mg/dL (74-106)
--- NOTE | 2017-02-02 08:53 | DS ---
Physical Examination Vital Signs: Vital Signs Temperature 98.2 F 02/02/17 06:00 Pulse Rate 83 02/02/17 06:00 Respiratory Rate 18 02/02/17 06:00 Blood Pressure 136/96 02/02/17 06:00 O2 Sat by Pulse Oximetry (%) 96 02/01/17 21:00 Constitutional: Yes: Calm, Pallor Eyes: Yes: Other (hematoma above left eye.) Cardiovascular: Yes: Regular Rate and Rhythm, Murmur Respiratory: Yes: Diminished. No: Wheezes Gastrointestinal: Yes: Soft. No: Tenderness Breast(s): Yes: WNL Edema: No Neurological: Yes: Alert, Oriented, Weakness Labs: CBC, BMP 02/02/17 06:00 02/02/17 06:00 Discharge Summary Reason For Visit: FALL Current Active Problems AAA (abdominal aortic aneurysm) without rupture (Acute) Acute and chronic respiratory failure (Acute) Anemia (Acute) Carotid artery stenosis (Acute) Fall (Acute) Pulmonary hypertension (Acute) Sleep apnea in adult (Acute) Bi2 deficiency(acute) Iron Deficiency anemia(acute) Procedures: Principal: Blood transfusions (2). Emergency Head and Abd CAT scans Other Procedures: Followup lab and consultations with Cardiology, Pulmonary and Vascular MD's Hospital Course: Very slow to improve. Our Vascular MD will be speaking to the MD's at [facility] Re: ?? repeat attempt at endovascular repair of AAA. Condition: Improved - Instructions Diet, Activity, Other Instructions: No added salt low cholesterol diet. Visit within 2 weeks after discharge. Call other MD's for their appointments. Referrals: Dion Sheehan MD [Staff Physician] - Remi Slater MD [Staff Physician] - Kevin Mclaughlin MD [Staff Physician] - Fredy Holly MD [Staff Physician] - [facility] - Home Medications Comprehensive Discharge Medication List: Ambulatory Orders Pantoprazole Sodium [Protonix -] 20 mg PO DAILY #30 tablet.ec 05/07/14 Furosemide 20 mg PO DAILY 01/26/17 Aspirin [ASA -] 81 mg PO DAILY 01/27/17 Atorvastatin Calcium 10 mg PO HS 01/27/17 Fluticasone/Vilanterol [Breo Ellipta 200-25 Mcg INH] 1 puff IH DAILY 01/27/17 Levalbuterol HCl [Xopenex] 0.63 mg NEB TID 01/27/17 Sertraline HCl [Zoloft] 100 mg PO DAILY 01/27/17 Spironolactone [Aldactone -] 25 mg PO DAILY 01/27/17 Umeclidinium [place] [Incruse Ellipta] 1 puff IH DAILY 01/27/17 Acetaminophen [Tylenol .Regular Strength -] 650 mg PO Q6H PRN #0 tablet Ascorbic Acid [Vitamin C -] 500 mg PO BID tablet 02/02/17 Cyanocobalamin [Vitamin B12 -] 1,000 mcg PO DAILY tablet 02/02/17 Ferrous Sulfate [Feosol] 325 mg PO BID tab 02/02/17 Polyethylene Glycol 3350 [Miralax 119 gm Btl -] 17 gm PO DAILY bottle 02/02/17
[2017-02-02] MEDS: PANTOPRAZOLE 20 MG TABLET (FP) PO SCH (10:02)
[2017-02-02] MEDS: CYANOCOBALAMIN 1,000 MCG TABLET (FP) PO SCH (10:02)
[2017-02-02] MEDS: SERTRALINE HCL 50 MG TABLET (FP) PO SCH (10:02)
[2017-02-02] MEDS: ASCORBIC ACID 500 MG TABLET (FP) PO SCH (10:02)
[2017-02-02] MEDS: SPIRONOLACTONE 25 MG TABLET (FP) PO SCH (10:02)
[2017-02-02] MEDS: ASPIRIN 81 MG CHEWABLE TABLETS PO SCH (10:02)
[2017-02-02] MEDS: FERROUS SO4 325 MG TABLET (FP) PO SCH (10:02)
[2017-02-02] MEDS: HEPARIN NA (PORCINE) 5,000 UNITS/ML 1ML VIAL SQ SCH (10:02)
[2017-02-02] MEDS: PATIENT'S OWN MEDICATION (NON-FORMULARY) (Fluticasone/Vilanterol [Breo Ellipta 200-25 Mcg IH SCH (10:03)
[2017-02-02] MEDS: PATIENT'S OWN MEDICATION (NON-FORMULARY) (Umeclidinium Bromide [Incruse Ellipta] 1 PUFF) IH SCH (10:03)
[2017-02-02] MEDS: POLYETHYLENE GLYCOL 3350 119 GM BTL PO SCH ×2 (10:03→10:07)
[2017-02-02] MEDS: ACETAMINOPHEN 325 MG TABLET (FP) PO PRN (10:12)
[2017-02-02] MEDS: FUROSEMIDE 20 MG TABLET (FP) PO SCH (13:33)
[2017-02-02 14:56] VITALS: BP 120/61; PULSE 84; TEMP 97.5
[2017-02-03 00:12] LABS: A/G RATIO 1.3 (0.7-1.7); ALBUMIN 3.4 g/dL (2.9-4.4); ALPHA-1-GLOBULIN 0.2 g/dL (0.0-0.4); GAMMA GLOBULIN 0.9 g/dL (0.4-1.8); GLOBULIN, TOTAL 2.8 g/dL (2.2-3.9); M-SPIKE Not Observed g/dL (Not Observed); TOTAL PROTEIN 6.2 g/dL (6.0-8.5)
== END 2017-02-02 14:51 | DRG 189 ==
LOC: JER 15:19 → JERBED 19:18 → OBSVTOIN 21:16 → J8W 21:39
PROVIDERS: ADMIT Internal Medicine; ATTEND Internal Medicine
DX: J96.20 Acute and chronic respiratory failure, unspecified whether with hypoxia or hypercapnia (principal); J44.1 Chronic obstructive pulmonary disease with (acute) exacerbation; I50.32 Chronic diastolic (congestive) heart failure; D62 Acute posthemorrhagic anemia; I27.2 Other secondary pulmonary hypertension; D51.9 Vitamin B12 deficiency anemia, unspecified; D50.9 Iron deficiency anemia, unspecified; I65.29 Occlusion and stenosis of unspecified carotid artery; S00.83XA Contusion of other part of head, initial encounter; H57.8 Other specified disorders of eye and adnexa; S50.11XA Contusion of right forearm, initial encounter; W06.XXXA Fall from bed, initial encounter; Z91.81 History of falling; Y93.89 Activity, other specified; Y92.038 Other place in apartment as the place of occurrence of the external cause; Y99.8 Other external cause status; I10 Essential (primary) hypertension; Z87.891 Personal history of nicotine dependence; I35.0 Nonrheumatic aortic (valve) stenosis; E78.00 Pure hypercholesterolemia, unspecified; I73.9 Peripheral vascular disease, unspecified; I71.4 Abdominal aortic aneurysm, without rupture; G47.33 Obstructive sleep apnea (adult) (pediatric)
CPT/HCPCS: 36415; 36430; 70450-TC; 70486-TC; 71010-TC; 74176-TC; 80048; 80053; 80061; 81003; 81015; 82136; 82272; 82607; 82746; 82784; 83540; 83550; 83615; 83721; 83735; 83918; 84100; 84155; 84165; 84443; 84484; 85025; 85044; 86334; 86850; 86900; 86901; 86922; 93005; 93010; 93306-TC; 93880-TC; 94640; 97116-GP; 97161-GP; 99282-25; G0378; J1644; P9038; P9058